=== PATIENT | female | born 1990 | race Caucasian/White ===

== ENCOUNTER 2016-08-13 12:29 | Inpatient (IN) | payer OTHER ==
[2016-08-13 13:54] VITALS: BMI 26.6
--- NOTE | 2016-08-13 15:00 | HP ---
COWS - Scale Resting Pulse: 2= MO 101-120 Sweatin=Flushed/Facial Moisture Restless Observation: 1= Difficult to Sit Still Pupil Size: 0= Normal to Room Light Bone or Joint Aches: 2= Severe Diffuse Aches Runny Nose/ Eye Tearin= Runny Nose/Eyes GI Upset > 30mins: 1= Stomach Cramp Tremor Observation: 2= Slight Tremor Visible Yawning Observation: 2= >3x During Session Anxiety or Irritability: 2=Irritable/Anxious Goose Flesh Skin: 3=Piloerection COWS Score: 19 Admission ROS [facility] - [facility] Allergies/Adverse Reactions: Allergies Allergy/AdvReac Type Severity Reaction Status Date / Time No Known Allergies Allergy Verified 08/13/16 14:27 Exam Limitations: No Limitations - Ebola screening Have you traveled outside of the country in the last 21 days: No Have you had contact with anyone from an Ebola affected area: No Have you been sick,other than usual withdrawal symptoms: No Do you have a fever: No - Review of Systems Constitutional: Chills, Diaphoresis, Loss of Appetite, Night Sweats, Unintentional Wgt. Loss EENT: reports: Blurred Vision, Tearing, Nose Congestion Respiratory: reports: No Symptoms reported Cardiac: reports: No Symptoms Reported GI: reports: Constipated, Diarrhea, Poor Appetite, Poor Fluid Intake, Indigestion : reports: No Symptoms Reported Musculoskeletal: reports: Back Pain, Joint Pain, Muscle Pain Integumentary: reports: Flushing, Sweating Neuro: reports: Headache, Seizure (last seizure about a week ago), Tingling, Tremors Endocrine: reports: Excessive Sweating, Flushing, Intolerance to Cold, Intolerance to Heat Hematology: reports: No Symptoms Reported Psychiatric: reports: Judgement Intact, Orientated x3, Agitated, Anxious Other Systems: Reviewed and Negative Patient History - Patient Medical History Hx Anemia: No Hx Asthma: No Hx Chronic Obstructive Pulmonary Disease (COPD): No Hx Cancer: No Hx Cardiac Disorders: No Hx Congestive Heart Failure: No Hx Hypertension: Yes Hx Hypercholesterolemia: No Hx Pacemaker: No HX Cerebrovascular Accident: No Hx Seizures: Yes (last episode was in 08/08/2016) Hx Dementia: No Hx Diabetes: No Hx Gastrointestinal Disorders: No Hx Liver Disease: No Hx Genitourinary Disorders: No Hx Sexually Transmitted Disorders: No Hx Renal Disease (ESRD): No Hx Thyroid Disease: No Hx Human Immunodeficiency Virus (HIV): No (LAST 02/11 NEGATIVE) Hx Hepatitis C: No (negative) Hx Depression: No Hx Suicide Attempt: No (denies) Hx Bipolar Disorder: No Hx Schizophrenia: No - Patient Surgical History Past Surgical History: Yes Hx Neurologic Surgery: No Hx Cataract Extraction: No Hx Cardiac Surgery: No Hx Lung Surgery: No Hx Breast Surgery: No Hx Breast Biopsy: No Hx Abdominal Surgery: Yes Hx Appendectomy: No Hx Cholecystectomy: No Hx Genitourinary Surgery: No Hx Section: Yes (X1 IN 2010) Hx Orthopedic Surgery: No Other Surgical History: IUD 2 years ago Anesthesia Reaction: No - PPD History Previous Implant?: Yes Documented Results: Negative w/proof Implanted On Prior [facility] Admission?: Yes Date: 05/31/16 Results: 0 mm PPD to be Administered?: No - Reproductive History Last Menstrual Period: 08/03/16 Patient : No - Smoking Cessation Smoking history: Current every day smoker Have you smoked in the past 12 months: Yes Aproximately how many cigarettes per day: 10 Hx Chewing Tobacco Use: No Initiated information on smoking cessation: Yes 'Breaking Loose' booklet given: 08/13/16 - Substance & Tx. History Hx Substance Use: Yes Substance Use Type: Cocaine, Heroin Hx Substance Use Treatment: Yes - Substances Abused Heroin Route: Injection Frequency: Daily Amount used: 9 bags Age of first use: 22 Date of Last Use: 08/13/16 Cocaine Route: Injection Frequency: 1-3 times last 30 days Amount used: $40 Age of first use: 16 Date of Last Use: 08/12/16 Family Disease History - Family Disease History Family Disease History: Other: Grandparent (GF-HTN), Father (HTN), Mother (HTN) Admission Physical Exam BHS - Vital Signs Vital Signs: Vital Signs - 24 hr 08/13/16 13:45 Temperature 97 F L Pulse Rate 118 H Respiratory 20 Rate Blood Pressure 116/80 - Physical General Appearance: Yes: Appropriately Dressed, Moderate Distress, Tremorous, Irritable, Sweating, Anxious HEENTM: Yes: Normal Voice, Nasal Congestion, Rhinorrhea Respiratory: Yes: Lungs Clear, Normal Breath Sounds, No Respiratory Distress Neck: Yes: No masses,lesions,Nodules Breast: Yes: Within Normal Limits Cardiology: Yes: Regular Rhythm, Regular Rate, S1, S2 Abdominal: Yes: Normal Bowel Sounds, Non Tender, Soft Genitourinary: Yes: Within Normal Limits Back: Yes: Normal Inspection Musculoskeletal: Yes: full range of Motion, Back pain Extremities: Yes: Normal Capillary Refill, Normal Inspection, Non-Tender, Tremors Neurological: Yes: Fully Oriented, Alert, Normal Response Integumentary: Yes: Normal Color, Diaphoresis, Track Booker Lymphatic: Yes: Within Normal Limits - Diagnostic (1) Chronic low back pain Current Visit: Yes Status: Chronic Qualifiers: Back pain laterality: unspecified (2) Nicotine dependence Current Visit: Yes Status: Chronic (3) Opioid dependence with withdrawal Current Visit: Yes Status: Chronic (4) Seizure Current Visit: Yes Status: Chronic Comment: h/o of seizure last a week ago Cleared for Admission [facility] - Detox or Rehab [facility] Level of Care: Medically Managed Detox Regimen/Protocol: Methadone [facility] Breath Alcohol Content Breath Alcohol Content: 0 Urine Pregancy Test - Result Urine Test Results: Negative- NO Line Present Urine Drug Screen - Results Drug Screen Negative: No Urine Drug Screen Results: THC-Marijuana, EMA-Cocaine, OPI-Opiates
[2016-08-13] MEDS ORDERED: MAGNESIUM CITRATE 300 ML BOTTLE PO PRN (15:09)
[2016-08-13] MEDS ORDERED: MAGNESIUM HYDROX 2400MG/30ML ORAL SUSPENSION 30 ML CUP PO PRN (15:09)
[2016-08-13] MEDS ORDERED: ACETAMINOPHEN 325 MG TABLET (FP) PO PRN (15:09)
[2016-08-13] MEDS ORDERED: MAG HYDROX/AL HYDROX/SIMETH 30 ML UNIT-DOSE CUP PO PRN (15:09)
[2016-08-13] MEDS ORDERED: LOPERAMIDE HCL 2 MG CAPSULE PO PRN (15:09)
[2016-08-13] MEDS ORDERED: guaiFENesin/D-METHORPHAN HB 10 ML UNIT-DOSE CUPS PO PRN (15:09)
[2016-08-13] MEDS ORDERED: NICOTINE POLACRILEX 4 MG GUM BUC PRN (15:09)
[2016-08-13] MEDS ORDERED: diphenhydrAMINE HCL 50 MG CAPSULE PO PRN (15:09)
[2016-08-13] MEDS ORDERED: P-EPHED 60MG/TRIPROLIDI 2.5MG TABLET PO PRN (15:09)
[2016-08-13] MEDS ORDERED: MENTHOL/PHENOL 1 EACH UD MM PRN (15:09)
[2016-08-13] MEDS ORDERED: cloNIDine HCL 0.1 MG TABLET PO ONE (15:31)
[2016-08-13] MEDS ORDERED: METHADONE HCL 10 MG TABLET (FOR DETOX USE ONLY) PO ONE ×2 (15:35→23:00)
[2016-08-13] MEDS: diazePAM 5 MG TABLET PO PRN ×2 (15:54→22:20)
[2016-08-13 19:43] LABS: URINE APPEARANCE TURBID; URINE BILIRUBIN NEGATIVE (NEGATIVE); URINE BLOOD NEGATIVE (NEGATIVE); URINE COLOR AMBER; URINE GLUCOSE (UA) NEGATIVE (NEGATIVE); URINE KETONE NEGATIVE (NEGATIVE); URINE LEUK ESTERASE NEGATIVE (NEGATIVE); URINE NITRITE NEGATIVE (NEGATIVE); URINE PROTEIN NEGATIVE (NEGATIVE); URINE UROBILINOGEN 2.0 E.U/dl E.U./dl (0.2-1.0)
[2016-08-13] MEDS: THIAMINE HCL 100 MG TABLET (FP) PO SCH (22:20)
[2016-08-13] MEDS: cloNIDine HCL 0.1 MG TABLET PO SCH (22:21)
[2016-08-13] MEDS: hydrOXYzine PAMOATE 50 MG CAPSULE (FP) PO PRN (23:40)
[2016-08-14] MEDS: diazePAM 5 MG TABLET PO PRN ×4 (05:46→22:23)
[2016-08-14] MEDS: IBUPROFEN 400 MG TABLET (FP) PO PRN ×2 (07:21→22:49)
--- NOTE | 2016-08-14 09:24 | CONSULT ---
[facility] Psychiatric Consult - Data Date of interview: 08/14/16 Admission source: [facility] Identifying data: This is 26 years old female with no psychiatric hospitalization history intoxicated with Heroin, Cocaine, Cannabis and Nicotine Substance Abuse History: Drug Screen Negative: No. Urine Drug Screen Results: THC-Marijuana, EMA-Cocaine, OPI-Opiates. - Smoking Cessation. Smoking history : Current every day smoker. Have you smoked in the past 12 months: Yes. Aproximately how many cigarettes per day: 10. Hx Chewing Tobacco Use: No. Initiated information on smoking cessation: Yes. 'Breaking Loose' booklet given : 08/13/16. - Substance & Tx. History. Hx Substance Use: Yes. Substance Use Type: Cocaine, Heroin. Hx Substance Use Treatment: Yes. - Substances Abused. Heroin. Route: Injection. Frequency: Daily. Amount used: 9 bags. Age of first use: 22. Date of Last Use: 08/13/16. Cocaine. Route: Injection. Frequency: 1-3 times last 30 days. Amount used: $40. Age of first use: 16. Date of Last Use: 08/12/16 Medical History: LBP, Seizure history, UTI history, Lumbar Herniation history Psychiatric History: ADHD, reports taking Vistaril 50mg po p[rn q6 with good response Physical/Sexual Abuse/Trauma History: Denies Additional Comment: Drug Screen Negative: No. Urine Drug Screen Results: THC- Marijuana, EMA-Cocaine, OPI-Opiates. Vistaril 50mg po p[rn q6 Mental Status Exam - Mental Status Exam Alert and Oriented to: Person Cognitive Function: Fair Patient Appearance: Unkempt Mood: Sad Affect: Mood Congruent Patient Behavior: Cooperative Speech Pattern: Appropriate Voice Loudness: Normal Thought Process: Goal Oriented Thought Disorder: Being Controlled Hallucinations: Denies Suicidal Ideation: Denies Homicidal Ideation: Denies Insight/Judgement: Fair Sleep: Difficulty falling asleep Appetite: Weight loss Muscle strength/Tone: Normal Gait/Station: Normal Additional Comments: Vistaril 50mg po p[rn q6 Psychiatric Findings - Problem List ([place] 1, 2,3) (1) Nicotine dependence Current Visit: Yes Status: Chronic (2) Opioid dependence with withdrawal Current Visit: Yes Status: Chronic (3) ADHD (attention deficit hyperactivity disorder) Current Visit: No Status: Chronic (4) Anxiety disorder Current Visit: No Status: Chronic (5) Drug-induced mood disorder Current Visit: No Status: Suspected - Initial Treatment Plan Initial Treatment Plan: Vistaril 50mg po p[rn q6
--- NOTE | 2016-08-14 09:25 | CONSULT ---
[facility] Psychiatric Consult - Data Substance Abuse History: Drug Screen Negative: No. Urine Drug Screen Results: THC-Marijuana, EMA-Cocaine, OPI-Opiates Additional Comment: Drug Screen Negative: No. Urine Drug Screen Results: THC- Marijuana, EMA-Cocaine, OPI-Opiates
[2016-08-14] MEDS ORDERED: PRENATAL VITAMINS W/ FOLIC ACID TABLET (FP) PO SCH (10:00)
[2016-08-14] MEDS ORDERED: METHADONE HCL 10 MG TABLET (FOR DETOX USE ONLY) PO ONE (10:00)
[2016-08-14] MEDS ORDERED: NICOTINE 21 MG/24 HOURS TOPICAL PATCH TD SCH (10:00)
[2016-08-14 10:06] LABS: MCH 29.9 pg (25.7-33.7); MCHC 32.9 g/dl (32.0-36.0); MEAN PLT VOLUME 10.7 fl (7.5-11.1); PLATELET COUNT 232 K/MM3 (134-434); RDW 16.6 % (11.6-15.6); WHITE BLOOD COUNT 8.3 K/mm3 (4.0-10.0)
[2016-08-14] MEDS: cloNIDine HCL 0.1 MG TABLET PO SCH ×2 (10:25→22:23)
[2016-08-14 10:50] LABS: ALBUMIN 4.4 g/dl (3.4-5.0); ALK PHOS 106 U/L (45-117); ANION GAP 10 (8-16); BILIRUBIN,TOTAL 0.8 mg/dL (0.2-1.0); CALCIUM 9.5 mg/dL (8.5-10.1); CO2 28 mmol/L (21-32); GLUCOSE,RANDOM 144 mg/dL (74-106); SGOT/AST 138 U/L (15-37); SGPT/ALT 350 U/L (12-78); TOT PROT 7.8 g/dl (6.4-8.2)
--- NOTE | 2016-08-14 11:57 | PN ---
BHS COWS - Scale Resting Pulse: 1= NE 81-100 Sweatin=Flushed/Facial Moisture Restless Observation: 1= Difficult to Sit Still Pupil Size: 0= Normal to Room Light Bone or Joint Aches: 2= Severe Diffuse Aches Runny Nose/ Eye Tearin= Runny Nose/Eyes GI Upset > 30mins: 1= Stomach Cramp Tremor Observation of Outstretched Hands: 2= Slight Tremor Visible Yawning Observation: 2= >3x During Session Anxiety or Irritability: 2=Irritable/Anxious Goose Flesh Skin: 0=Smooth Skin COWS Score: 15 BHS Progress Note (SOAP) Subjective: irritable sweats shakes interrupted sleep agitation Objective: 08/14/16 11:54 Vital Signs Temperature 97.7 F 08/14/16 09:18 Pulse Rate 87 08/14/16 09:18 Respiratory Rate 18 08/14/16 09:18 Blood Pressure 104/64 08/14/16 09:18 O2 Sat by Pulse Oximetry (%) Laboratory Tests 08/13/16 08/14/16 08/14/16 14:00 06:00 06:00 WBC 8.3 RBC 4.94 Hgb 14.8 D Hct 44.9 MCV 91.0 MCHC 32.9 RDW 16.6 H Plt Count 232 MPV 10.7 Sodium 141 Potassium 4.3 Chloride 103 Carbon Dioxide 28 Anion Gap 10 BUN 17 D Creatinine 1.0 D Creat Clearance w eGFR > 60 Random Glucose 144 H D Calcium 9.5 Total Bilirubin 0.8 D AST 138 H D ALT 350 H D Alkaline Phosphatase 106 Total Protein 7.8 Albumin 4.4 Urine Color Laura Urine Appearance Turbid Urine pH 5.0 Ur Specific [place] 1.031 Urine Protein Negative Urine Glucose (UA) Negative Urine Ketones Negative Urine Blood Negative Urine Nitrite Negative Urine Bilirubin Negative Urine Urobilinogen 2.0 e.u/dl H Ur Leukocyte Esterase Negative elevated ast/alt;d/c tylenol awake/alert ambulating no acute distress elevated glucose repeat cmp Assessment: 08/14/16 11:56 withdrawal sx Plan: continue detox increase fluids f/u repeated labs
[2016-08-14] MEDS: hydrOXYzine PAMOATE 50 MG CAPSULE (FP) PO PRN (14:13)
--- NOTE | 2016-08-14 16:18 | EKG ---
Test Reason : Blood Pressure : / mmHG Vent. Rate : 077 BPM Atrial Rate : 077 BPM P-R Int : 158 ms QRS Dur : 078 ms QT Int : 382 ms P-R-T Axes : 048 025 040 degrees QTc Int : 432 ms NORMAL SINUS RHYTHM WITH SINUS ARRHYTHMIA Confirmed by LUCILLE SEGAL MD ([id number]) on 08/14/2016 4:17:36 PM Referred By: Confirmed By:LUCILLE SEGAL MD
[2016-08-14] MEDS: THIAMINE HCL 100 MG TABLET (FP) PO SCH (22:23)
[2016-08-15] MEDS: diazePAM 5 MG TABLET PO PRN (05:51)
[2016-08-15 06:48] VITALS: BP 122/66; PULSE 86; TEMP 97.9
--- NOTE | 2016-08-15 08:55 | PN ---
BHS CIWA - CIWA Score Nausea/Vomitin Muscle Tremors: 3 Anxiety: 3 Agitation: 3 Paroxysmal Sweats: 1-Minimal Palms Moist Orientation: 0-Oriented Tacttile Disturbances: 1-Very Mild Itch/Numbness Auditory Disturbances: 1-Very Mild Visual Disturbances: 1-Very Mild Sensitivity Headache: 2-Mild CIWA-Ar Total Score: 18 BHS Progress Note (SOAP) Subjective: alert,irritable,anxious,interrupted sleep,tremor Objective: 08/15/16 08:51 Vital Signs Temperature 97.9 F 08/15/16 06:00 Pulse Rate 86 08/15/16 06:00 Respiratory Rate 16 08/15/16 06:00 Blood Pressure 122/66 08/15/16 06:00 O2 Sat by Pulse Oximetry (%) 08/15/16 08:54 repeat alt,ast pending Assessment: withdrawal symptom Plan: continue detox
--- NOTE | 2016-08-15 09:10 | DS ---
[facility] Detox Discharge Summary Admission Date: 08/13/16 Discharge Date: 08/15/16 - History Present History: Opioid Dependence Additional Comments: patient did not want to complete treatment,signed release ama,patient is aware of abnormal lab with elevation alt,ast,she will see her own pmd for follow up Pertinent Past History: seizure chronic low back pain - Physical Exam Results Vital Signs: Vital Signs Temperature 97.9 F 08/15/16 06:00 Pulse Rate 86 08/15/16 06:00 Respiratory Rate 16 08/15/16 06:00 Blood Pressure 122/66 08/15/16 06:00 O2 Sat by Pulse Oximetry (%) Pertinent Admission Physical Exam Findings: withdrawal symptom - Medication Discharge Medications: Ambulatory Orders Clonidine HCl [Clonidine HCl ER] 0.1 mg PO BID 03/07/16 - AMA Did Patient Leave Against Medical Advice: Yes
[2016-08-15] MEDS ORDERED: METHADONE HCL 5 MG TABLET (FOR DETOX USE ONLY) PO ONE (10:00)
[2016-08-15 10:07] LABS: ALBUMIN 3.2 g/dl (3.4-5.0); ANION GAP 8 (8-16); CALCIUM 8.2 mg/dL (8.5-10.1); CO2 30 mmol/L (21-32); CREATININE 0.6 mg/dL (0.55-1.02); GLUCOSE,RANDOM 63 mg/dL (74-106); SGOT/AST 74 U/L (15-37); SGPT/ALT 231 U/L (12-78)
[2016-08-15 10:09] LABS: ALK PHOS 102 U/L (45-117); BILIRUBIN,TOTAL 0.2 mg/dL (0.2-1.0); TOT PROT 5.7 g/dl (6.4-8.2)
[2016-08-16] MEDS ORDERED: METHADONE HCL 5 MG TABLET (FOR DETOX USE ONLY) PO ONE (10:00)
[2016-08-17] MEDS ORDERED: METHADONE HCL 10 MG TABLET (FOR DETOX USE ONLY) PO ONE (10:00)
[2016-08-18] MEDS ORDERED: METHADONE HCL 5 MG TABLET (FOR DETOX USE ONLY) PO ONE (06:00)
== END 2016-08-15 08:58 | disposition left against medical advice (07) | DRG 770 ==
LOC: YASAS 12:29 → Y6N 14:57
PROVIDERS: ADMIT Internal Medicine Addiction Medicine; ATTEND Internal Medicine Addiction Medicine
PROC: HZ2ZZZZ Detoxification Services for Substance Abuse Treatment (ICD-10-PCS; principal; 2016-08-15)
DX: F11.23 Opioid dependence with withdrawal (principal); F17.210 Nicotine dependence, cigarettes, uncomplicated; F19.24 Other psychoactive substance dependence with psychoactive substance-induced mood disorder; F41.9 Anxiety disorder, unspecified; F90.9 Attention-deficit hyperactivity disorder, unspecified type; G40.909 Epilepsy, unspecified, not intractable, without status epilepticus
CPT/HCPCS: 36415; 80053; 81003; 85027; 86593; 93005; 93010

== ENCOUNTER 2016-10-15 18:06 | Inpatient (IN) | payer OTHER ==
[2016-10-15 19:25] VITALS: BMI 24.5
--- NOTE | 2016-10-15 19:53 | HP ---
COWS - Scale Resting Pulse: 0= OK 80 or Below Sweatin= Chills/Flushing Restless Observation: 1= Difficult to Sit Still Pupil Size: 1= Pupils >than Normal Bone or Joint Aches: 2= Severe Diffuse Aches Runny Nose/ Eye Tearin= Runny Nose/Eyes GI Upset > 30mins: 2= Nausea/Diarrhea Tremor Observation: 2= Slight Tremor Visible Yawning Observation: 1= 1-2x During Session Anxiety or Irritability: 2=Irritable/Anxious Goose Flesh Skin: 3=Piloerection COWS Score: 17 Admission ROS S - HPI Chief Complaint: WITHDRAWAL SYMPTOMS Allergies/Adverse Reactions: Allergies Allergy/AdvReac Type Severity Reaction Status Date / Time No Known Allergies Allergy Verified 08/13/16 14:27 History of Present Illness: 26 Y.O. WITH A FOUR HISTORY OF OPIATE DEPENDENCE IS SEEKING DETOX. SHE WAS HERE PREVIOUSLY IN 07/2016 BUT LEFT AMA. SHE DENIES ANY SIGNIFICANT PERIOD OF SOBRIETY. 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) Neuro: reports: No Symptoms reported Endocrine: reports: No Symptoms Reported Hematology: reports: No Symptoms Reported Psychiatric: reports: Orientated x3, Depressed, other (ADHD) Other Systems: Reviewed and Negative Patient History - Patient Medical History Hx Anemia: No Hx Asthma: No Hx Chronic Obstructive Pulmonary Disease (COPD): No Hx Cancer: No Hx Cardiac Disorders: No Hx Congestive Heart Failure: No Hx Hypertension: No Hx Hypercholesterolemia: No Hx Pacemaker: No HX Cerebrovascular Accident: No Hx Seizures: Yes (2016-ON [facility] ) Hx Dementia: No Hx Diabetes: No Hx Gastrointestinal Disorders: No Hx Liver Disease: No Hx Genitourinary Disorders: No Hx Sexually Transmitted Disorders: No Hx Renal Disease (ESRD): No Hx Thyroid Disease: No Hx Human Immunodeficiency Virus (HIV): No (LAST 02/11 NEGATIVE) Hx Hepatitis C: No (negative) Hx Depression: Yes Hx Suicide Attempt: No Hx Bipolar Disorder: No Hx Schizophrenia: No - Patient Surgical History Past Surgical History: Yes Hx Neurologic Surgery: No Hx Cataract Extraction: No Hx Cardiac Surgery: No Hx Lung Surgery: No Hx Breast Surgery: No Hx Breast Biopsy: No Hx Abdominal Surgery: Yes Hx Appendectomy: No Hx Cholecystectomy: No Hx Genitourinary Surgery: No Hx Section: Yes (X1 IN 2010) Hx Orthopedic Surgery: No Other Surgical History: IUD 2 years ago Anesthesia Reaction: No - PPD History Previous Implant?: Yes Documented Results: Negative w/proof Implanted On Prior [facility] Admission?: Yes Date: 05/31/16 Results: 0mm PPD to be Administered?: No - Reproductive History Patient is a Female of Child Bearing Age (11 -55 yrs old): Yes Last Menstrual Period: 09/06/16 Patient : No - Smoking Cessation Smoking history: Current every day smoker Have you smoked in the past 12 months: Yes Aproximately how many cigarettes per day: 10 Hx Chewing Tobacco Use: No Initiated information on smoking cessation: Yes 'Breaking Loose' booklet given: 10/15/16 - Substance & Tx. History Hx Alcohol Use: No Hx Substance Use: Yes Substance Use Type: Heroin Hx Substance Use Treatment: Yes (REHAB AND DETOX ) - Substances Abused Heroin Route: Injection Frequency: Daily Amount used: 5-10 bags Age of first use: 22 Date of Last Use: 10/15/16 Family Disease History - Family Disease History Family Disease History: Other: Grandparent (GF-HTN), Father (HTN), Mother (HTN) Admission Physical Exam S - Vital Signs Vital Signs: Vital Signs - 24 hr 10/15/16 19:22 Temperature 97.3 F L Pulse Rate 77 Respiratory 18 Rate Blood Pressure 111/73 - Physical General Appearance: Yes: Tremorous, Anxious HEENTM: Yes: Rhinorrhea Respiratory: Yes: Chest Non-Tender, Lungs Clear, Normal Breath Sounds, No Respiratory Distress, No Accessory Muscle Use Neck: Yes: No masses,lesions,Nodules, Trachea in good position Breast: Yes: Breast Exam Deferred Cardiology: Yes: Regular Rhythm, Regular Rate Abdominal: Yes: Non Tender, Flat, Soft Genitourinary: Yes: Other (DENIES ANY COMPLAINTS) Back: Yes: Normal Inspection Musculoskeletal: Yes: Back pain, Muscle Pain Extremities: Yes: Normal Capillary Refill, Normal Inspection, Normal Range of Motion, Tremors Neurological: Yes: Fully Oriented, Alert, Normal Mood/Affect, Normal Response Integumentary: Yes: Warm, Track Shafer Lymphatic: Yes: Within Normal Limits - Diagnostic (1) Nicotine dependence Current Visit: Yes Status: Chronic (2) Opioid dependence with withdrawal Current Visit: Yes Status: Chronic (3) Seizure Current Visit: Yes Status: Chronic Comment: h/o of seizure last a week ago Cleared for Admission [facility] - Detox or Rehab [facility] Level of Care: Medically Managed Detox Regimen/Protocol: Methadone [facility] Breath Alcohol Content Breath Alcohol Content: 0 Urine Pregancy Test - Result Urine Test Results: Negative- NO Line Present Urine Drug Screen - Results Drug Screen Negative: No Urine Drug Screen Results: EMA-Cocaine, OPI-Opiates, BZO-Benzodiazepines, MTD- Methadone
[2016-10-15] MEDS ORDERED: IBUPROFEN 400 MG TABLET (FP) PO PRN (20:06)
[2016-10-15] MEDS ORDERED: MAGNESIUM CITRATE 300 ML BOTTLE PO PRN (20:06)
[2016-10-15] MEDS ORDERED: METHADONE HCL 10 MG TABLET (FOR DETOX USE ONLY) PO ONE ×2 (20:06→23:00)
[2016-10-15] MEDS ORDERED: MAGNESIUM HYDROX 2400MG/30ML ORAL SUSPENSION 30 ML CUP PO PRN (20:06)
[2016-10-15] MEDS ORDERED: NICOTINE POLACRILEX 2 MG GUM BC PRN (20:06)
[2016-10-15] MEDS ORDERED: guaiFENesin/D-METHORPHAN HB 10 ML UNIT-DOSE CUPS PO PRN (20:06)
[2016-10-15] MEDS ORDERED: MAG HYDROX/AL HYDROX/SIMETH 30 ML UNIT-DOSE CUP PO PRN (20:06)
[2016-10-15] MEDS ORDERED: LOPERAMIDE HCL 2 MG CAPSULE PO PRN (20:06)
[2016-10-15] MEDS ORDERED: ACETAMINOPHEN 325 MG TABLET (FP) PO PRN (20:06)
[2016-10-15] MEDS ORDERED: MENTHOL/PHENOL 1 EACH UD MM PRN (20:06)
[2016-10-15] MEDS ORDERED: P-EPHED 60MG/TRIPROLIDI 2.5MG TABLET PO PRN (20:06)
[2016-10-15] MEDS: BACITRACIN 0.9 GM PACKET TP SCH (22:00)
[2016-10-15] MEDS: diazePAM 5 MG TABLET PO PRN (22:00)
[2016-10-15] MEDS: THIAMINE HCL 100 MG TABLET (FP) PO SCH (22:00)
[2016-10-15] MEDS: levETIRAcetam 500 MG TABLET (FP) PO SCH (22:01)
[2016-10-16] MEDS: diazePAM 5 MG TABLET PO PRN ×4 (06:17→22:23)
--- NOTE | 2016-10-16 08:45 | CONSULT ---
[facility] Psychiatric Consult - Data Date of interview: 10/16/16 Admission source: [facility] Identifying data: This is 26 years old female with no psychiatric hospitalization history intoxicated with: Opioids, Nicotine, history of Alcohol abuse/dependency as well Substance Abuse History: - Smoking Cessation. Smoking history: Current every day smoker. Have you smoked in the past 12 months: Yes. Aproximately how many cigarettes per day: 10. Hx Chewing Tobacco Use: No. Initiated information on smoking cessation: Yes. 'Breaking Loose' booklet given: 10/15/16. - Substance & Tx. History. Hx Alcohol Use: No. Hx Substance Use: Yes. Substance Use Type : Heroin. Hx Substance Use Treatment: Yes (REHAB AND DETOX ). - Substances Abused. Heroin. Route: Injection. Frequency: Daily. Amount used: 5-10 bags. Age of first use: 22. Date of Last Use: 10/15/16 Medical History: Seizure history, LBP, UTI History Psychiatric History: Patient reports history of ADHD, Anxiety, reports taking prior to admission: Adderal and Klonopin, reports need in Klonopin due to seizure disorder Physical/Sexual Abuse/Trauma History: Denies Additional Comment: Observation. Detox Unit Care Protocol Mental Status Exam - Mental Status Exam Alert and Oriented to: Person Cognitive Function: Fair Patient Appearance: Unkempt Mood: Anxious Affect: Mood Congruent Patient Behavior: Cooperative Speech Pattern: Appropriate Voice Loudness: Mildly Loud Thought Process: Goal Oriented Thought Disorder: Being Controlled Hallucinations: Denies Suicidal Ideation: Denies Homicidal Ideation: Denies Insight/Judgement: Fair Sleep: Difficulty falling asleep Appetite: Fair Muscle strength/Tone: Normal Gait/Station: Normal Additional Comments: - Smoking Cessation. Smoking history: Current every day smoker. Have you smoked in the past 12 months: Yes. Aproximately how many cigarettes per day: 10. Hx Chewing Tobacco Use: No. Initiated information on smoking cessation: Yes. 'Breaking Loose' booklet given: 10/15/16. - Substance & Tx. History. Hx Alcohol Use: No. Hx Substance Use: Yes. Substance Use Type : Heroin. Hx Substance Use Treatment: Yes (REHAB AND DETOX ). - Substances Abused. Heroin. Route: Injection. Frequency: Daily. Amount used: 5-10 bags. Age of first use: 22. Date of Last Use: 10/15/16 Psychiatric Findings - Problem List ([place] 1, 2,3) (1) Nicotine dependence Current Visit: Yes Status: Chronic (2) Opioid dependence with withdrawal Current Visit: Yes Status: Chronic (3) ADHD (attention deficit hyperactivity disorder) Current Visit: No Status: Chronic (4) Anxiety disorder Current Visit: No Status: Chronic (5) Drug-induced mood disorder Current Visit: No Status: Suspected - Initial Treatment Plan Initial Treatment Plan: Observation. Detox Unit Care Protocol
--- NOTE | 2016-10-16 08:46 | CONSULT ---
[id number] [facility] Identifying data: This is 26 years old female with no psychiatric hospitalization history intoxicated with Opioids, Amphjethamins and Nicotine Substance Abuse History: - Smoking Cessation. Smoking history: Current every day smoker. Have you smoked in the past 12 months: Yes. Aproximately how many cigarettes per day: 10. Hx Chewing Tobacco Use: No. Initiated information on smoking cessation: Yes. 'Breaking Loose' booklet given: 10/15/16. - Substance & Tx. History. Hx Alcohol Use: No. Hx Substance Use: Yes. Substance Use Type : Heroin. Hx Substance Use Treatment: Yes (REHAB AND DETOX ). - Substances Abused. Heroin. Route: Injection. Frequency: Daily. Amount used: 5-10 bags. Age of first use: 22. Date of Last Use: 10/15/16 Medical History: Denies Psychiatric History: Patient reports ADHD, Anxiety history, reports using Adderal for anxiety prior to admission Physical/Sexual Abuse/Trauma History: Denies Additional Comment: Observation. Detox Unit Care Protocol Mental Status Exam - Mental Status Exam Alert and Oriented to: Person Cognitive Function: Fair Patient Appearance: Unkempt Mood: Sad Affect: Flat Patient Behavior: Sedated Speech Pattern: Delayed Voice Loudness: Mildly Soft/Quiet Thought Process: Circumstantial Thought Disorder: Being Controlled Hallucinations: Denies Suicidal Ideation: Denies Homicidal Ideation: Denies Insight/Judgement: Fair Sleep: Difficulty falling asleep Appetite: Fair Muscle strength/Tone: Normal Gait/Station: Normal Additional Comments: Observation. Detox Unit Care Protocol Psychiatric Findings - Problem List ([place] 1, 2,3) (1) Nicotine dependence Current Visit: Yes Status: Chronic (2) Opioid dependence with withdrawal Current Visit: Yes Status: Chronic (3) ADHD (attention deficit hyperactivity disorder) Current Visit: No Status: Chronic (4) Anxiety disorder Current Visit: No Status: Chronic (5) Lumbar herniated disc Current Visit: No Status: Chronic (6) Drug-induced mood disorder Current Visit: No Status: Suspected - Initial Treatment Plan Initial Treatment Plan: Observation. Detox Unit Care Protocol
[2016-10-16] MEDS ORDERED: METHADONE HCL 10 MG TABLET (FOR DETOX USE ONLY) PO ONE (10:00)
[2016-10-16] MEDS: NICOTINE 14 MG/24 HOURS TOPICAL PATCH TD SCH (10:43)
[2016-10-16] MEDS: levETIRAcetam 500 MG TABLET (FP) PO SCH ×2 (10:44→22:23)
[2016-10-16] MEDS: PRENATAL VITAMINS W/ FOLIC ACID TABLET (FP) PO SCH (10:44)
[2016-10-16] MEDS: BACITRACIN 0.9 GM PACKET TP SCH ×2 (10:44→22:24)
[2016-10-16 10:46] LABS: MCH 30.3 pg (25.7-33.7); MCHC 33.6 g/dl (32.0-36.0); MEAN PLT VOLUME 10.8 fl (7.5-11.1); PLATELET COUNT 185 K/MM3 (134-434); RDW 13.7 % (11.6-15.6); WHITE BLOOD COUNT 5.6 K/mm3 (4.0-10.0)
[2016-10-16 10:52] LABS: ALBUMIN 3.4 g/dl (3.4-5.0); ANION GAP 8 (8-16); CALCIUM 8.5 mg/dL (8.5-10.1); CO2 27 mmol/L (21-32); GLUCOSE,RANDOM 101 mg/dL (74-106)
[2016-10-16 10:55] LABS: ALK PHOS 78 U/L (45-117); BILIRUBIN,TOTAL 0.4 mg/dL (0.2-1.0); CREATININE 0.8 mg/dL (0.55-1.02); SGOT/AST 74 U/L (15-37); SGPT/ALT 159 U/L (12-78); TOT PROT 6.8 g/dl (6.4-8.2)
[2016-10-16 11:45] LABS: HIV 1 & 2 AB NEGATIVE; HIV 1 AGp24 NEGATIVE
--- NOTE | 2016-10-16 12:32 | EKG ---
Test Reason : Blood Pressure : / mmHG Vent. Rate : 063 BPM Atrial Rate : 063 BPM P-R Int : 158 ms QRS Dur : 078 ms QT Int : 424 ms P-R-T Axes : 062 052 057 degrees QTc Int : 433 ms NORMAL SINUS RHYTHM WITH SINUS ARRHYTHMIA NORMAL ECG WHEN COMPARED WITH ECG OF 13-AUG-2016 15:50, NO SIGNIFICANT CHANGE WAS FOUND Confirmed by LUCILLE SEGAL MD ([id number]) on 10/16/2016 12:31:48 PM Referred By: Confirmed By:LUCILLE SEGAL MD
[2016-10-16] MEDS: hydrOXYzine PAMOATE 50 MG CAPSULE (FP) PO PRN (18:45)
[2016-10-16] MEDS ORDERED: HYDROCORTISONE 1% TOPICAL CREAM 30 GM TUBE TP ONE (19:00)
[2016-10-16] MEDS: THIAMINE HCL 100 MG TABLET (FP) PO SCH (22:24)
[2016-10-16] MEDS: diphenhydrAMINE HCL 50 MG CAPSULE PO PRN (22:25)
[2016-10-17] MEDS ORDERED: ONDANSETRON *ODT* 4 MG TABLET SL PRN (09:29)
[2016-10-17] MEDS ORDERED: METHADONE HCL 5 MG TABLET (FOR DETOX USE ONLY) PO ONE (10:00)
[2016-10-17] MEDS: levETIRAcetam 500 MG TABLET (FP) PO SCH ×2 (10:59→22:20)
[2016-10-17] MEDS: PRENATAL VITAMINS W/ FOLIC ACID TABLET (FP) PO SCH (10:59)
[2016-10-17] MEDS: BACITRACIN 0.9 GM PACKET TP SCH ×2 (10:59→22:20)
[2016-10-17] MEDS: diazePAM 5 MG TABLET PO PRN ×2 (11:01→22:22)
[2016-10-17] MEDS: NICOTINE 14 MG/24 HOURS TOPICAL PATCH TD SCH (12:14)
[2016-10-17] MEDS: NICOTINE 21 MG/24 HOURS TOPICAL PATCH TD SCH (12:14)
--- NOTE | 2016-10-17 13:07 | PN ---
BHS COWS - Scale Resting Pulse: 0= [place] 80 or Below Sweatin= Chills/Flushing Restless Observation: 0= Sits Still Pupil Size: 0= Normal to Room Light Bone or Joint Aches: 2= Severe Diffuse Aches Runny Nose/ Eye Tearin= Runny Nose/Eyes GI Upset > 30mins: 2= Nausea/Diarrhea Tremor Observation of Outstretched Hands: 2= Slight Tremor Visible Yawning Observation: 1= 1-2x During Session Anxiety or Irritability: 2=Irritable/Anxious Goose Flesh Skin: 3=Piloerection COWS Score: 15 BHS Progress Note (SOAP) Subjective: Nausea, Tremors, Interrupted sleep, Sweating, H/A, Body Aches. Objective: PT. A & O X 3, OBSERVED AMBULATING ON UNIT. PT. REPORTS HISTORY OF LOW BP. PT. DENIES DIZZINESS. 10/17/16 13:05 Vital Signs Temperature 97.9 F 10/17/16 11:59 Pulse Rate 70 10/17/16 11:59 Respiratory Rate 18 10/17/16 11:59 Blood Pressure 111/71 10/17/16 11:59 O2 Sat by Pulse Oximetry (%) Laboratory Last Values WBC 5.6 K/mm3 (4.0-10.0) D 10/16/16 07:00 RBC 4.39 M/mm3 (3.60-5.2) 10/16/16 07:00 Hgb 13.3 GM/dL (10.7-15.3) D 10/16/16 07:00 Hct 39.5 % (32.4-45.2) 10/16/16 07:00 MCV 90.0 fl (80-96) 10/16/16 07:00 MCHC 33.6 g/dl (32.0-36.0) 10/16/16 07:00 RDW 13.7 % (11.6-15.6) D 10/16/16 07:00 Plt Count 185 K/MM3 (134-434) D 10/16/16 07:00 MPV 10.8 fl (7.5-11.1) 10/16/16 07:00 Sodium 145 mmol/L (136-145) 10/16/16 07:00 Potassium 3.9 mmol/L (3.5-5.1) 10/16/16 07:00 Chloride 110 mmol/L (98-107) H 10/16/16 07:00 Carbon Dioxide 27 mmol/L (21-32) 10/16/16 07:00 Anion Gap 8 (8-16) 10/16/16 07:00 BUN 17 mg/dL (7-18) 10/16/16 07:00 Creatinine 0.8 mg/dL (0.55-1.02) D 10/16/16 07:00 Creat Clearance w eGFR > 60 (>60) 10/16/16 07:00 Random Glucose 101 mg/dL (74-106) D 10/16/16 07:00 Calcium 8.5 mg/dL (8.5-10.1) 10/16/16 07:00 Total Bilirubin 0.4 mg/dL (0.2-1.0) D 10/16/16 07:00 AST 74 U/L (15-37) H 10/16/16 07:00 ALT 159 U/L (12-78) H D 10/16/16 07:00 Alkaline Phosphatase 78 U/L (45-117) D 10/16/16 07:00 Total Protein 6.8 g/dl (6.4-8.2) 10/16/16 07:00 Albumin 3.4 g/dl (3.4-5.0) 10/16/16 07:00 RPR Titer Nonreactive (NONREACTIVE) 10/16/16 07:00 HIV 1&2 Antibody Screen Negative 10/16/16 08:00 HIV P24 Antigen Negative 10/16/16 08:00 LABS NOTED. Assessment: 10/17/16 13:06 WITHDRAWAL SYMPTOMS. Plan: CONTINUE DETOX. INCREASE PO FLUIDS. ADVISED PATIENT TO FOLLOW-UP WITH ENERGY SYSTEMS ENGINEER / REHAB MEDICAL PROVIDER AFTER DISCHARGE FROM DETOX FOR GENERAL MEDICAL ASSESSMENT AND FOR ABNORMAL ADMISSION LAB VALUES.
[2016-10-17 13:15] LABS: URINE APPEARANCE CLOUDY; URINE BILIRUBIN NEGATIVE (NEGATIVE); URINE BLOOD NEGATIVE (NEGATIVE); URINE COLOR DKYELLOW; URINE GLUCOSE (UA) NEGATIVE (NEGATIVE); URINE KETONE NEGATIVE (NEGATIVE); URINE NITRITE POSITIVE (NEGATIVE); URINE PROTEIN NEGATIVE (NEGATIVE); URINE UROBILINOGEN NEGATIVE E.U./dl (0.2-1.0)
[2016-10-17 13:16] LABS: URINE LEUK ESTERASE 3+ (NEGATIVE)
[2016-10-17 13:18] LABS: URINE BACTERIA RARE /hpf (NONE SEEN); URINE MUCUS MANY; URINE RBC 11 /hpf (0-3); URINE WBC 87 /hpf (3-5); YEAST RARE
[2016-10-17] MEDS: diphenhydrAMINE HCL 50 MG CAPSULE PO PRN (22:20)
[2016-10-17] MEDS: THIAMINE HCL 100 MG TABLET (FP) PO SCH (22:23)
[2016-10-18] MEDS ORDERED: METHADONE HCL 5 MG TABLET (FOR DETOX USE ONLY) PO ONE (10:00)
[2016-10-18] MEDS: BACITRACIN 0.9 GM PACKET TP SCH ×2 (10:26→22:30)
[2016-10-18] MEDS: PRENATAL VITAMINS W/ FOLIC ACID TABLET (FP) PO SCH (10:27)
[2016-10-18] MEDS: diazePAM 5 MG TABLET PO PRN (10:27)
[2016-10-18] MEDS: levETIRAcetam 500 MG TABLET (FP) PO SCH ×2 (10:28→22:30)
[2016-10-18] MEDS: NICOTINE 21 MG/24 HOURS TOPICAL PATCH TD SCH ×2 (10:29→11:10)
[2016-10-18] MEDS ORDERED: diphenhydrAMINE HCL 25 MG CAPSULE (FP) PO ONE (12:11)
--- NOTE | 2016-10-18 17:32 | PN ---
BHS COWS - Scale Resting Pulse: 0= [place] 80 or Below Sweatin= Chills/Flushing Restless Observation: 1= Difficult to Sit Still Pupil Size: 0= Normal to Room Light Bone or Joint Aches: 2= Severe Diffuse Aches Runny Nose/ Eye Tearin= Runny Nose/Eyes GI Upset > 30mins: 2= Nausea/Diarrhea Tremor Observation of Outstretched Hands: 2= Slight Tremor Visible Yawning Observation: 1= 1-2x During Session Anxiety or Irritability: 2=Irritable/Anxious Goose Flesh Skin: 3=Piloerection COWS Score: 16 BHS Progress Note (SOAP) Subjective: Stomach Cramping, Nausea, Sweating, Interrupted Sleep, Itchy Skin, Body Aches. Objective: PT. A & O X 3, OBSERVED AMBULATING ON UNIT. 10/18/16 17:29 Vital Signs Temperature 98.1 F 10/18/16 14:34 Pulse Rate 71 10/18/16 14:34 Respiratory Rate 18 10/18/16 14:34 Blood Pressure 116/71 10/18/16 14:34 O2 Sat by Pulse Oximetry (%) Laboratory Last Values WBC 5.6 K/mm3 (4.0-10.0) D 10/16/16 07:00 RBC 4.39 M/mm3 (3.60-5.2) 10/16/16 07:00 Hgb 13.3 GM/dL (10.7-15.3) D 10/16/16 07:00 Hct 39.5 % (32.4-45.2) 10/16/16 07:00 MCV 90.0 fl (80-96) 10/16/16 07:00 MCHC 33.6 g/dl (32.0-36.0) 10/16/16 07:00 RDW 13.7 % (11.6-15.6) D 10/16/16 07:00 Plt Count 185 K/MM3 (134-434) D 10/16/16 07:00 MPV 10.8 fl (7.5-11.1) 10/16/16 07:00 Sodium 145 mmol/L (136-145) 10/16/16 07:00 Potassium 3.9 mmol/L (3.5-5.1) 10/16/16 07:00 Chloride 110 mmol/L (98-107) H 10/16/16 07:00 Carbon Dioxide 27 mmol/L (21-32) 10/16/16 07:00 Anion Gap 8 (8-16) 10/16/16 07:00 BUN 17 mg/dL (7-18) 10/16/16 07:00 Creatinine 0.8 mg/dL (0.55-1.02) D 10/16/16 07:00 Creat Clearance w eGFR > 60 (>60) 10/16/16 07:00 Random Glucose 101 mg/dL (74-106) D 10/16/16 07:00 Calcium 8.5 mg/dL (8.5-10.1) 10/16/16 07:00 Total Bilirubin 0.4 mg/dL (0.2-1.0) D 10/16/16 07:00 AST 74 U/L (15-37) H 10/16/16 07:00 ALT 159 U/L (12-78) H D 10/16/16 07:00 Alkaline Phosphatase 78 U/L (45-117) D 10/16/16 07:00 Total Protein 6.8 g/dl (6.4-8.2) 10/16/16 07:00 Albumin 3.4 g/dl (3.4-5.0) 10/16/16 07:00 Urine Color Dkyellow 10/17/16 11:30 Urine Appearance Cloudy 10/17/16 11:30 Urine pH 6.0 (5.0-8.0) 10/17/16 11:30 Ur Specific [place] 1.023 (1.001-1.035) 10/17/16 11:30 Urine Protein Negative (NEGATIVE) 10/17/16 11:30 Urine Glucose (UA) Negative (NEGATIVE) 10/17/16 11:30 Urine Ketones Negative (NEGATIVE) 10/17/16 11:30 Urine Blood Negative (NEGATIVE) 10/17/16 11:30 Urine Nitrite Positive (NEGATIVE) 10/17/16 11:30 Urine Bilirubin Negative (NEGATIVE) 10/17/16 11:30 Urine Urobilinogen Negative E.U./dl (0.2-1.0) 10/17/16 11:30 Ur Leukocyte Esterase 3+ (NEGATIVE) H 10/17/16 11:30 Urine RBC 11 /hpf (0-3) 10/17/16 11:30 Urine WBC 87 /hpf (3-5) 10/17/16 11:30 Ur Epithelial Cells Moderate /hpf (FEW) 10/17/16 11:30 Urine Bacteria Rare /hpf (NONE SEEN) 10/17/16 11:30 Urine Mucus Many 10/17/16 11:30 Urine Yeast Rare 10/17/16 11:30 RPR Titer Nonreactive (NONREACTIVE) 10/16/16 07:00 HIV 1&2 Antibody Screen Negative 10/16/16 08:00 HIV P24 Antigen Negative 10/16/16 08:00 LABS NOTED. Assessment: 10/18/16 17:30 WITHDRAWAL SYMPTOMS. Plan: CONTINUE DETOX. BENADRYL, 25 MG PO X 1 FOR ITCHING. ADVISED PATIENT TO FOLLOW-UP WITH APPRAISER IRRIGATION TAX / REHAB MEDICAL PROVIDER AFTER DISCHARGE FROM DETOX FOR GENERAL MEDICAL ASSESSMENT AND FOR ABNORMAL ADMISSION LAB VALUES.
[2016-10-18] MEDS: diphenhydrAMINE HCL 50 MG CAPSULE PO PRN (22:30)
[2016-10-18] MEDS: THIAMINE HCL 100 MG TABLET (FP) PO SCH (23:35)
[2016-10-19] MEDS ORDERED: METHADONE HCL 10 MG TABLET (FOR DETOX USE ONLY) PO ONE (10:00)
[2016-10-19] MEDS: PRENATAL VITAMINS W/ FOLIC ACID TABLET (FP) PO SCH (10:19)
[2016-10-19] MEDS: BACITRACIN 0.9 GM PACKET TP SCH ×2 (10:19→22:05)
[2016-10-19] MEDS: levETIRAcetam 500 MG TABLET (FP) PO SCH ×2 (10:19→22:05)
[2016-10-19] MEDS: NICOTINE 21 MG/24 HOURS TOPICAL PATCH TD SCH (10:19)
--- NOTE | 2016-10-19 11:09 | PN ---
BHS Progress Note (SOAP) Subjective: Sweating,interrupted sleep,restless Objective: 10/19/16 11:06 Vital Signs - 8 hr 10/19/16 10/19/16 10/19/16 03:30 06:00 10:00 Temperature 97.3 F L 97.5 F L Pulse Rate 53 L 70 Respiratory 18 18 18 Rate Blood Pressure 105/67 101/74 Laboratory Tests 10/16/16 10/16/16 10/16/16 07:00 07:00 07:00 WBC 5.6 D RBC 4.39 Hgb 13.3 D Hct 39.5 MCV 90.0 MCHC 33.6 RDW 13.7 D Plt Count 185 D MPV 10.8 Sodium 145 Potassium 3.9 Chloride 110 H Carbon Dioxide 27 Anion Gap 8 BUN 17 Creatinine 0.8 D Creat Clearance w eGFR > 60 Random Glucose 101 D Calcium 8.5 Total Bilirubin 0.4 D AST 74 H ALT 159 H D Alkaline Phosphatase 78 D Total Protein 6.8 Albumin 3.4 Urine Color Urine Appearance Urine pH Ur Specific [place] Urine Protein Urine Glucose (UA) Urine Ketones Urine Blood Urine Nitrite Urine Bilirubin Urine Urobilinogen Ur Leukocyte Esterase Urine RBC Urine WBC Ur Epithelial Cells Urine Bacteria Urine Mucus Urine Yeast RPR Titer Nonreactive HIV 1&2 Antibody Screen HIV P24 Antigen 10/16/16 10/17/16 08:00 11:30 WBC RBC Hgb Hct MCV MCHC RDW Plt Count MPV Sodium Potassium Chloride Carbon Dioxide Anion Gap BUN Creatinine Creat Clearance w eGFR Random Glucose Calcium Total Bilirubin AST ALT Alkaline Phosphatase Total Protein Albumin Urine Color Dkyellow Urine Appearance Cloudy Urine pH 6.0 Ur Specific [place] 1.023 Urine Protein Negative Urine Glucose (UA) Negative Urine Ketones Negative Urine Blood Negative Urine Nitrite Positive Urine Bilirubin Negative Urine Urobilinogen Negative Ur Leukocyte Esterase 3+ H Urine RBC 11 Urine WBC 87 Ur Epithelial Cells Moderate Urine Bacteria Rare Urine Mucus Many Urine Yeast Rare RPR Titer HIV 1&2 Antibody Screen Negative HIV P24 Antigen Negative U/A + for nitrite,leuk esterase & bacteria is consistent with UTI Assessment: 10/19/16 11:08 Withdrawal sx. Plan: Continue detox
[2016-10-19] MEDS: SULFAMETHOXAZOLE/TRIMETHOPRIM 800MG/160MG D.S. TABLET PO SCH ×2 (15:13→22:05)
[2016-10-19] MEDS: hydrOXYzine PAMOATE 50 MG CAPSULE (FP) PO PRN (22:05)
[2016-10-19] MEDS: THIAMINE HCL 100 MG TABLET (FP) PO SCH (22:05)
[2016-10-20] MEDS ORDERED: METHADONE HCL 5 MG TABLET (FOR DETOX USE ONLY) PO ONE (06:00)
[2016-10-20] MEDS: levETIRAcetam 500 MG TABLET (FP) PO SCH (09:01)
[2016-10-20 09:25] VITALS: BP 111/72; PULSE 75; TEMP 97
--- NOTE | 2016-10-20 09:29 | DS ---
[facility] Detox Discharge Summary Admission Date: 10/15/16 Discharge Date: 10/20/16 - History Present History: Alcohol Dependence, Opioid Dependence - Physical Exam Results Vital Signs: Vital Signs Temperature 97.0 F L 10/20/16 09:24 Pulse Rate 75 10/20/16 09:24 Respiratory Rate 16 10/20/16 09:24 Blood Pressure 111/72 10/20/16 09:24 O2 Sat by Pulse Oximetry (%) - Treatment Hospital Course: Detox Protocol Followed, Detoxed Safely, Responded well, Discharged Condition Good, Rehab Referral Accepted - Medication Discharge Medications: Ambulatory Orders Dextroamphetamine/Amphetamine [Adderall Xr 30 mg Capsule] 30 mg PO DAILY - Diagnosis (1) Nicotine dependence Current Visit: Yes Status: Chronic (2) Opioid dependence with withdrawal Current Visit: Yes Status: Chronic (3) Seizure Current Visit: Yes Status: Chronic (4) ADHD (attention deficit hyperactivity disorder) Current Visit: No Status: Chronic (5) Anxiety disorder Current Visit: No Status: Chronic (6) Chronic low back pain Current Visit: Yes Status: Chronic Qualifiers: Back pain laterality: unspecified (7) Lumbar herniated disc Current Visit: No Status: Chronic (8) Drug-induced mood disorder Current Visit: No Status: Suspected - AMA Did Patient Leave Against Medical Advice: No
== END 2016-10-20 09:02 | disposition home or self-care (01) | DRG 773 ==
LOC: YASAS 18:06 → Y6N 20:36
PROVIDERS: ADMIT Internal Medicine Addiction Medicine; ATTEND Internal Medicine Addiction Medicine
PROC: HZ2ZZZZ Detoxification Services for Substance Abuse Treatment (ICD-10-PCS; principal; 2016-10-15)
DX: F11.23 Opioid dependence with withdrawal (principal); F17.210 Nicotine dependence, cigarettes, uncomplicated; F90.9 Attention-deficit hyperactivity disorder, unspecified type; F41.9 Anxiety disorder, unspecified; F19.24 Other psychoactive substance dependence with psychoactive substance-induced mood disorder; G40.909 Epilepsy, unspecified, not intractable, without status epilepticus; M54.5 Low back pain; G89.29 Other chronic pain; M51.26 Other intervertebral disc displacement, lumbar region; N39.0 Urinary tract infection, site not specified
CPT/HCPCS: 36415; 80053; 81003; 81015; 85027; 86593; 87086; 87186; 87389; 93005; 93010

== ENCOUNTER 2016-11-10 13:56 | Emergency (ER) | payer OTHER ==
[2016-11-10 14:01] VITALS: TEMP 98; BMI 23.6
[2016-11-10] MEDS ORDERED: ONDANSETRON 4 MG/2 ML VIAL ONE (16:44)
[2016-11-10] MEDS ORDERED: FAMOTIDINE 20 MG/50 ML IVPB 50 ML IVPB ONE (16:45)
--- NOTE | 2016-11-10 16:55 | PDOC ---
History of Present Illness - General Chief Complaint: Pain Stated Complaint: CHEST PAIN, ABD PAIN, Time Seen by Provider: 11/10/16 15:44 History Source: Patient Exam Limitations: No Limitations - History of Present Illness Initial Comments: 11/10/16 16:55 CHIEF COMPLAINT: Abdominal pain HISTORY OF PRESENT ILLNESS: This is a 26 year old female with a history of substance abuse (states not using drugs actively, no longer on methadone) who presents complaining of abdominal pain, vomiting, and chest pain. She reports that she is , but is unsure how far along (she thinks her last period might have been two months ago). [facility] to [facility] , but was sent to the ED for evaluation after she stated all of the above complaints. Vital signs on arrival are notable for pulse of 104. REVIEW OF SYSTEMS: GENERAL/CONSTITUTIONAL: No fever or chills. No weakness. No weight change. CARDIOVASCULAR: Chest pain after many episodes of vomiting. No palpitations. RESPIRATORY: No cough, wheezing, or shortness of breath. GASTROINTESTINAL: Vomiting and inability to tolerate fluids. No diarrhea or constipation. GENITOURINARY: No dysuria, frequency, or change in urination. No vaginal bleeding. MUSCULOSKELETAL: No joint or muscle swelling or pain. No neck or back pain. SKIN: No rash or easy bruising. NEUROLOGIC: No headache, vertigo, loss of consciousness, or loss of sensation. PSYCHIATRIC: No depression or anxiety. ENDOCRINE: No increased thirst. No abnormal weight change. HEMATOLOGIC/LYMPHATIC: No anemia, easy bleeding, or history of blood clots. ALLERGIC/IMMUNOLOGIC: No hives or skin allergy. No latex allergy. PHYSICAL EXAM: GENERAL: The patient is awake, alert, and fully oriented, in no acute distress. ENT: Pupils equal, round and reactive to light, extraocular movements intact, sclera anicteric, conjunctiva clear. Neck supple. LUNGS: Clear to auscultation bilaterally. Normal excursion. No respiratory distress or use of accessory muscles. CV: RRR, S1/S2, no MRG. Cap refill < 2 sec. ABDOMEN: Soft, non-distended, non-tender. EXTREMITIES: Normal range of motion, no edema. NEUROLOGICAL: Normal speech, normal gait. CN II-XII grossly intact. PSYCH: Normal mood, normal affect. SKIN: Warm, dry, normal turgor, no rashes or lesions noted. Past History - Past Medical History Allergies/Adverse Reactions: Allergies Allergy/AdvReac Type Severity Reaction Status Date / Time No Known Allergies Allergy Verified 08/13/16 14:27 Home Medications: Ambulatory Orders Dextroamphetamine/Amphetamine [Adderall Xr 30 mg Capsule] 30 mg PO DAILY Famotidine [Pepcid] 20 mg PO DAILY #30 tablet 11/10/16 Ondansetron [Zofran Odt -] 4 mg SL TID PRN #21 od.tablet 11/10/16 Anemia: No Asthma: No Cancer: No Cardiac Disorders: No CVA: No COPD: No CHF: No Dementia: No Diabetes: No GI Disorders: No Disorders: No HTN: No Hypercholesterolemia: No Kidney Stones: No Liver Disease: No Psychiatric Problems: Yes (ANXIETY.) Suicide Attempt (Hx): No Seizures: Yes (ON ) Thyroid Disease: No - Surgical History Abdominal Surgery: Yes Appendectomy: No Cardiac Surgery: No Cholecystectomy: No Lung Surgery: No Neurologic Surgery: No Orthopedic Surgery: No - Reproductive History PID: No - Psycho/Social/Smoking Cessation Hx Anxiety: Yes Suicidal Ideation: No Smoking Status: Yes Smoking History: Current every day smoker Have you smoked in the past 12 months: Yes Number of Cigarettes Smoked Daily: 2 Information on smoking cessation initiated: Yes 'Breaking Loose' booklet given: 11/10/16 Hx Alcohol Use: No Drug/Substance Use Hx: No Substance Use Type: None Hx Substance Use Treatment: Yes (REHAB AND DETOX ) *Physical Exam - Vital Signs Last Vital Signs Temp Pulse Resp BP Pulse Ox 98 F 104 H 18 105/66 98 11/10/16 13:59 11/10/16 13:59 11/10/16 13:59 11/10/16 13:59 11/10/16 13:59 ED Treatment Course - LABORATORY CBC & Chemistry Diagram: 11/10/16 16:33 11/10/16 16:33 - RADIOLOGY Radiology Studies Ordered: Category Date Time Status <14WKS US [US] Stat Ultrasound 11/10/16 16:30 Ordered - Medications Given in the ED: ED Medications Discontinued Medications Generic Name Dose Route Start Last Admin Trade Name Freq PRN Reason Stop Dose Admin Ondansetron HCl 4 mg 11/10/16 16:29 11/10/16 16:50 Zofran Injection IVPUSH 11/10/16 16:30 4 mg ONCE ONE Administration Medical Decision Making - Medical Decision Making 11/10/16 18:08 A/P: 26 year old female with abdominal pain, vomiting, and chest pain. Chest pain occurred after many episodes of vomiting; do not suspect cardiac etiology. 1. EKG 2. Basic labs and beta hcg 3. Transvaginal u/s to confirm IUP 4. IVF, Zofran 4mg IVP, Pepcid 20mg IVPB 5. Reassess 11/10/16 18:14 Bhcg is 450 U/s interpreted by radiology: small fluid collection with appearance of a gestational sac, daimeter corresponding to gestational age of 4 weeks 6 days. No yolk sac or pole is identified. Early IUP is suspected but followup beta hcg and ultrasonography are indicated. Patient is tolerating PO. Will dc with instructions to return for repeat beta and u/s. *DC/Admit/Observation/Transfer Diagnosis at time of Disposition: Abdominal pain with vomiting Qualifiers: Weeks of gestation: less than 8 weeks Qualified Code(s): Z3A.01 - Less than 8 weeks gestation of - Discharge Dispostion Admit: No - Prescriptions Prescriptions: Famotidine [Pepcid] 20 mg PO DAILY #30 tablet Ondansetron [Zofran Odt -] 4 mg SL TID PRN #21 od.tablet PRN Reason: vomiting - Referrals Referrals: Nate Mota MD [Staff Physician] - 1 week (quality assurance manager) - Patient Instructions Printed Discharge Instructions: DI for Hyperemesis Gravidarum Additional Instructions: -Rest and stay well-hydrated -Take Pepcid for stomach discomfort and Zofran as needed for vomiting -Follow up with [facility] -Return here in 3-5 days for repeat blood work and u/s, or sooner for repeated episodes of chest pain, inability to keep down fluids, or any other concerning symptoms
[2016-11-10 16:59] LABS: EOSINOPHIL 1.4 % (0-4.5); MCHC 33.2 g/dl (32.0-36.0); MEAN CELL VOLUME 87.4 fl (80-96); MEAN PLT VOLUME 9.9 fl (7.5-11.1); NEUTROPHILS 69.1 % (42.8-82.8); PLATELET COUNT 265 K/MM3 (134-434); WHITE BLOOD COUNT 8.7 K/mm3 (4.0-10.0)
[2016-11-10 17:17] LABS: ALBUMIN 3.9 g/dl (3.4-5.0); ANION GAP 9 (8-16); BILIRUBIN,TOTAL 0.5 mg/dL (0.2-1.0); CALCIUM 8.7 mg/dL (8.5-10.1); CO2 25 mmol/L (21-32); COCKROFT - GAULT 119.9435; CREATININE 0.8 mg/dL (0.55-1.02); GLUCOSE,RANDOM 109 mg/dL (74-106); SGOT/AST 56 U/L (15-37); SGPT/ALT 133 U/L (12-78); TOT PROT 7.1 g/dl (6.4-8.2)
[2016-11-10 17:20] LABS: ALK PHOS 82 U/L (45-117)
[2016-11-10 17:47] LABS: URINE APPEARANCE CLEAR; URINE BILIRUBIN NEGATIVE (NEGATIVE); URINE BLOOD NEGATIVE (NEGATIVE); URINE COLOR YELLOW; URINE GLUCOSE (UA) NEGATIVE (NEGATIVE); URINE KETONE NEGATIVE (NEGATIVE); URINE LEUK ESTERASE NEGATIVE (NEGATIVE); URINE NITRITE NEGATIVE (NEGATIVE); URINE PROTEIN NEGATIVE (NEGATIVE); URINE UROBILINOGEN NEGATIVE E.U./dl (0.2-1.0)
[2016-11-10 19:01] LABS: URINE MARIJUANA THC NEGATIVE ng/ml (CUTOFF=50)
[2016-11-10 19:07] VITALS: BP 119/70; PULSE 72
--- NOTE | 2016-11-11 17:13 | EKG ---
Test Reason : Blood Pressure : / mmHG Vent. Rate : 083 BPM Atrial Rate : 083 BPM P-R Int : 136 ms QRS Dur : 078 ms QT Int : 396 ms P-R-T Axes : 065 022 053 degrees QTc Int : 465 ms NORMAL SINUS RHYTHM NORMAL ECG WHEN COMPARED WITH ECG OF 15-OCT-2016 20:09, NO SIGNIFICANT CHANGE WAS FOUND Confirmed by JUANCHO BELCHER MD ([id number]) on 11/11/2016 5:13:37 PM Referred By: Confirmed By:JUANCHO BELCHER MD
== END 2016-11-10 19:09 | disposition home or self-care (01) ==
LOC: JER 13:56
PROC: 3E033GC Introduction of Other Therapeutic Substance into Peripheral Vein, Percutaneous Approach (ICD-10-PCS; principal; 2016-11-10)
DX: O21.0 Mild hyperemesis gravidarum (principal); Z3A.01 Less than 8 weeks gestation of pregnancy; G40.909 Epilepsy, unspecified, not intractable, without status epilepticus; F41.9 Anxiety disorder, unspecified
CPT/HCPCS: 36415; 76801-TC; 80053; 80307; 81003; 83690; 84702; 85025; 93005; 93010; 96365; 96375; 99283-25

== ENCOUNTER 2016-11-13 15:24 | Emergency (ER) | payer OTHER ==
[2016-11-13 15:34] VITALS: BP 132/86; PULSE 117; TEMP 98.9; BMI 24.3
--- NOTE | 2016-11-13 17:55 | PDOC ---
History of Present Illness <Lawanda Hays - Last Filed: 11/13/16 20:23> - History of Present Illness Initial Comments: 11/13/16 17:57 Patient is a 26 year old female (12 weeks) with no significant medical hx who is presenting to the ED with progressive left suprapubic pain, nausea and vomiting for one week. The patient states shes been [facility] for her and she was sent to the ED for rule out ectopic because her has not been visible on US. The patient states she has not been able to sleep or keep anything down. She was given Zofran and Reglan by [facility] which she reports has not helped. The patients LNMP was 08/2016 and she reports having some spotting early this month. Denies any fevers , chills, vaginal bleeding, discharge, dysuria, hematuria, or diarrhea. /A1 <Riana Hodge - Last Filed: 11/13/16 20:40> - General Chief Complaint: Pain Stated Complaint: PAIN, 12 WKS Past History - Past Medical History Anemia: No Asthma: No Cancer: No Cardiac Disorders: No CVA: No COPD: No CHF: No Dementia: No Diabetes: No GI Disorders: No Disorders: No HTN: No Hypercholesterolemia: No Kidney Stones: No Liver Disease: No Psychiatric Problems: Yes (ANXIETY.) Suicide Attempt (Hx): No Seizures: Yes (2016-[facility] ) Thyroid Disease: No - Surgical History Abdominal Surgery: Yes Appendectomy: No Cardiac Surgery: No Cholecystectomy: No Lung Surgery: No Neurologic Surgery: No Orthopedic Surgery: No - Reproductive History (#): 3 Para: 1 PID: No - Psycho/Social/Smoking Cessation Hx Anxiety: Yes Suicidal Ideation: No Smoking Status: Yes Smoking History: Current every day smoker Have you smoked in the past 12 months: Yes Number of Cigarettes Smoked Daily: 2 Information on smoking cessation initiated: No 'Breaking Loose' booklet given: 11/10/16 Hx Alcohol Use: No Drug/Substance Use Hx: No Substance Use Type: None Hx Substance Use Treatment: Yes (REHAB AND DETOX ) <Lawanda Hays - Last Filed: 11/13/16 20:23> <Riana Hodge - Last Filed: 11/13/16 20:40> - Past Medical History Allergies/Adverse Reactions: Allergies Allergy/AdvReac Type Severity Reaction Status Date / Time No Known Allergies Allergy Verified 11/13/16 15:32 Home Medications: Ambulatory Orders Dextroamphetamine/Amphetamine [Adderall Xr 30 mg Capsule] 30 mg PO DAILY Review of Systems - Review of Systems Comments:: 11/13/16 17:57 GENERAL/CONSTITUTIONAL: No fever or chills. No weakness. HEAD, EYES, EARS, NOSE AND THROAT: No change in vision. No ear pain or discharge. No sore throat. CARDIOVASCULAR: No chest pain or shortness of breath. RESPIRATORY: No cough, wheezing, or hemoptysis. GASTROINTESTINAL: Left suprapubic pain, nausea, vomiting. No diarrhea or constipation. GENITOURINARY: No dysuria, frequency, or change in urination. MUSCULOSKELETAL: No joint or muscle swelling or pain. No neck or back pain. ENDOCRINE: No increased thirst. No abnormal weight change. SKIN: No rash NEUROLOGIC: No headache, vertigo, loss of consciousness, or change in strength/ sensation. <Riana Hodge - Last Filed: 11/13/16 20:40> *Physical Exam - Vital Signs Last Vital Signs Temp Pulse Resp BP Pulse Ox 98.9 F 117 H 20 132/86 97 11/13/16 15:32 11/13/16 15:32 11/13/16 15:32 11/13/16 15:32 11/13/16 15:32 <Lawanda Hays - Last Filed: 11/13/16 20:23> - Vital Signs Last Vital Signs Temp Pulse Resp BP Pulse Ox 98.9 F 117 H 20 132/86 97 11/13/16 15:32 11/13/16 15:32 11/13/16 15:32 11/13/16 15:32 11/13/16 15:32 - Physical Exam Comments: 11/13/16 17:58 GENERAL: Awake, alert, and fully oriented, in no acute distress HEAD: No signs of trauma EYES: PERRLA, EOMI, sclera anicteric, conjunctiva clear ENT: Auricles normal inspection, hearing grossly normal, nares patent, oropharynx clear without exudates. Moist mucosa NECK: Normal ROM, supple, no lymphadenopathy, JVD, or masses LUNGS: Breath sounds equal, clear to auscultation bilaterally. No wheezes, and no crackles HEART: Regular rate and rhythm, normal S1 and S2, no murmurs, rubs or gallops ABDOMEN: Soft, LLQ and suprapubic tenderness, normoactive bowel sounds. No guarding, no rebound. No masses EXTREMITIES: Normal range of motion, no edema. No clubbing or cyanosis. No cords, erythema, or tenderness NEUROLOGICAL: Cranial nerves II through XII grossly intact. Normal speech, normal gait SKIN: Warm, Dry, normal turgor, no rashes or lesions noted. HEMATOLOGIC/LYMPHATIC: No anemia, easy bleeding, or history of blood clots. ALLERGIC/IMMUNOLOGIC: No hives or skin allergy. PELVIC: Left adnexal tenderness and fullness. No bleeding. <Riana Hodge - Last Filed: 11/13/16 20:40> ED Treatment Course - LABORATORY CBC & Chemistry Diagram: 11/13/16 18:13 11/13/16 18:13 <Lawanda Hays - Last Filed: 11/13/16 20:23> - LABORATORY CBC & Chemistry Diagram: 11/13/16 18:13 11/13/16 18:13 - RADIOLOGY Radiograph Interpretation: 11/13/16 20:39 Transvaginal US Impression: Suspected early IUP. Clinical and laboratory correlation and follow- up ultrasonography recommended. Please see discussion. Reported By: Surya De Guzman MD <Riana Hodge - Last Filed: 11/13/16 20:40> Medical Decision Making - Medical Decision Making 11/13/16 17:55 26 yo F currently 12 weeks , 1 prior ab, here with unwanted , n/v. [facility], was seen in ER 4 days ago. hcg was 400, empty uterus at that time. now with persistant n/v and abd pain . lower abd, central , no bleeding. no loss of fluid. LMP first week august, then had spotting in early october, no f/c no urinary complaints. on exam abd soft, bilat lower quad ttp, left adnexa ttp on pelvic, mild fullness. differential: early iup, ecoptic, ovarian cyst. plan bhcg, tvus, control vomiting with fluids, zofran, reassess. 11/13/16 18:09 11/13/16 20:26 pt ultrasound with small gestational sac, no yolk sac or pole. large ovarian cyst similar to prior ultrasound. pt refusing to wait for official results of ultrasound. will require repeat ultrasound in 4 8 - 72 hours. given warning signs for ectopic . tolerating po, eating sandwich while in ed. dc home. <Lawanda Hays - Last Filed: 11/13/16 20:23> *DC/Admit/Observation/Transfer - Discharge Dispostion Admit: No <Lawanda Hays - Last Filed: 11/13/16 20:23> - Attestations Scribe Attestion: 11/13/16 17:59 Documentation prepared by Riana Hodge, acting as medical secretary for Lawanda Hays MD. <Riana Hodge - Last Filed: 11/13/16 20:40> Diagnosis at time of Disposition: Early stage of , Substance abuse - Discharge Dispostion Disposition: HOME - Referrals Referrals: Jones Nuñez MD [Primary Care Provider] - - Patient Instructions Printed Discharge Instructions: DI for Ectopic Additional Instructions: you should follow up with your mottler operator. you will need a repeat ultrasound and lab work within 48 hours. return for sudden worsening pain, vomiting or any concerns. you should obstain from all substance abuse while
[2016-11-13] MEDS ORDERED: SODIUM CHLORIDE 1,000 ML IV STA (17:58)
[2016-11-13] MEDS ORDERED: ONDANSETRON 4 MG/2 ML VIAL IVPUSH ONE (17:58)
[2016-11-13 18:34] LABS: URINE APPEARANCE CLEAR; URINE BILIRUBIN NEGATIVE (NEGATIVE); URINE BLOOD NEGATIVE (NEGATIVE); URINE COLOR AMBER; URINE GLUCOSE (UA) NEGATIVE (NEGATIVE); URINE KETONE NEGATIVE (NEGATIVE); URINE LEUK ESTERASE NEGATIVE (NEGATIVE); URINE NITRITE NEGATIVE (NEGATIVE); URINE PROTEIN NEGATIVE (NEGATIVE); URINE UROBILINOGEN 2.0 E.U/dl E.U./dl (0.2-1.0)
[2016-11-13 18:41] LABS: BASOPHIL 1.4 % (0-2.0); EOSINOPHIL 1.8 % (0-4.5); MCH 29.1 pg (25.7-33.7); MCHC 32.8 g/dl (32.0-36.0); MEAN CELL VOLUME 88.6 fl (80-96); MEAN PLT VOLUME 10.2 fl (7.5-11.1); NEUTROPHILS 65.3 % (42.8-82.8); PLATELET COUNT 235 K/MM3 (134-434); RDW 13.8 % (11.6-15.6); WHITE BLOOD COUNT 9.6 K/mm3 (4.0-10.0)
[2016-11-13 19:22] LABS: ALBUMIN 3.9 g/dl (3.4-5.0); ALK PHOS 76 U/L (45-117); ANION GAP 11 (8-16); BILIRUBIN,TOTAL 0.5 mg/dL (0.2-1.0); CALCIUM 8.6 mg/dL (8.5-10.1); CO2 25 mmol/L (21-32); CREATININE 0.8 mg/dL (0.55-1.02); GLUCOSE,RANDOM 78 mg/dL (74-106); SGOT/AST 50 U/L (15-37); SGPT/ALT 113 U/L (12-78)
[2016-11-13 19:49] LABS: URINE MARIJUANA THC NEGATIVE ng/ml (CUTOFF=50)
== END 2016-11-13 20:41 | disposition home or self-care (01) ==
LOC: JER 15:24
DX: O26.891 Other specified pregnancy related conditions, first trimester (principal); F19.10 Other psychoactive substance abuse, uncomplicated; Z3A.12 12 weeks gestation of pregnancy
CPT/HCPCS: 36415; 76817-TC; 80053; 80307; 81003; 84702; 85025; 99282-25

== ENCOUNTER 2016-12-10 01:28 | Inpatient (IN) | payer OTHER ==
[2016-12-10] MEDS ORDERED: NICOTINE POLACRILEX 2 MG GUM BC PRN (02:19)
[2016-12-10] MEDS ORDERED: MAG HYDROX/AL HYDROX/SIMETH 30 ML UNIT-DOSE CUP PO PRN (02:19)
[2016-12-10] MEDS ORDERED: LOPERAMIDE HCL 2 MG CAPSULE PO PRN (02:19)
[2016-12-10] MEDS ORDERED: ACETAMINOPHEN 325 MG TABLET (FP) PO PRN (02:19)
[2016-12-10] MEDS ORDERED: METHADONE HCL 10 MG TABLET (FOR DETOX USE ONLY) PO ONE ×3 (02:19→23:00)
[2016-12-10] MEDS ORDERED: MAGNESIUM CITRATE 300 ML BOTTLE PO PRN (02:19)
[2016-12-10] MEDS ORDERED: diphenhydrAMINE HCL 50 MG CAPSULE PO PRN (02:19)
[2016-12-10] MEDS ORDERED: MAGNESIUM HYDROX 2400MG/30ML ORAL SUSPENSION 30 ML CUP PO PRN (02:19)
[2016-12-10] MEDS ORDERED: guaiFENesin/D-METHORPHAN HB 10 ML UNIT-DOSE CUPS PO PRN (02:19)
[2016-12-10] MEDS ORDERED: MENTHOL/PHENOL 1 EACH UD MM PRN (02:19)
[2016-12-10] MEDS ORDERED: IBUPROFEN 400 MG TABLET (FP) PO PRN (02:19)
[2016-12-10] MEDS ORDERED: P-EPHED 60MG/TRIPROLIDI 2.5MG TABLET PO PRN (02:19)
--- NOTE | 2016-12-10 02:28 | HP ---
COWS - Scale Resting Pulse: 1= [place] 81-100 Sweatin=Flushed/Facial Moisture Restless Observation: 1= Difficult to Sit Still Pupil Size: 2= Moderately Dilated Bone or Joint Aches: 4=Acute Joint/Muscle Pain Runny Nose/ Eye Tearin= None GI Upset > 30mins: 0= None Tremor Observation: 2= Slight Tremor Visible Yawning Observation: 2= >3x During Session Anxiety or Irritability: 2=Irritable/Anxious Goose Flesh Skin: 0=Smooth Skin COWS Score: 16 Admission ROS S - HPI Chief Complaint: C/O WITHDRAWAL SX'S. SEEKING DETOX TXMENT Allergies/Adverse Reactions: Allergies Allergy/AdvReac Type Severity Reaction Status Date / Time No Known Allergies Allergy Verified 12/10/16 01:47 History of Present Illness: 26 Y.O. FEMALE WITH OPIOID DEPENDENCE ADMITTED TO DETOX. CLIENT IS KNOWN TO [facility]. SELF REFERRED. LONGEST CLEAN TIME 7 MONTHS. LAST HERE 09/2015. RECENT TOP Exam Limitations: No Limitations - Ebola screening Have you traveled outside of the country in the last 21 days: No Have you had contact with anyone from an Ebola affected area: No Have you been sick,other than usual withdrawal symptoms: No Do you have a fever: No - Review of Systems Constitutional: Chills, Malaise, Night Sweats, Changes in sleep EENT: reports: Tearing, Other (YAWNING) Respiratory: reports: No Symptoms reported Cardiac: reports: No Symptoms Reported GI: reports: Nausea : reports: No Symptoms Reported Musculoskeletal: reports: Joint Pain Integumentary: reports: Sweating Neuro: reports: Seizure Endocrine: reports: No Symptoms Reported Hematology: reports: No Symptoms Reported Psychiatric: reports: Anxious Other Systems: Reviewed and Negative Patient History - Patient Medical History Hx Anemia: No Hx Asthma: No Hx Chronic Obstructive Pulmonary Disease (COPD): No Hx Cancer: No Hx Cardiac Disorders: No Hx Congestive Heart Failure: No Hx Hypertension: No Hx Hypercholesterolemia: No Hx Pacemaker: No HX Cerebrovascular Accident: No Hx Seizures: Yes (DENIES DRUG RELATED) Hx Dementia: No Hx Diabetes: No Hx Gastrointestinal Disorders: No Hx Liver Disease: No Hx Genitourinary Disorders: No Hx Sexually Transmitted Disorders: No Hx Renal Disease (ESRD): No Hx Thyroid Disease: No Hx Human Immunodeficiency Virus (HIV): No Hx Hepatitis C: No Hx Depression: Yes Hx Suicide Attempt: No Hx Bipolar Disorder: No Hx Schizophrenia: No Other Medical History: ANXIETY/ ADHD - Patient Surgical History Past Surgical History: Yes Hx Neurologic Surgery: No Hx Cataract Extraction: No Hx Cardiac Surgery: No Hx Lung Surgery: No Hx Breast Surgery: No Hx Breast Biopsy: No Hx Abdominal Surgery: Yes Hx Appendectomy: No Hx Cholecystectomy: No Hx Genitourinary Surgery: No Hx Section: Yes Hx Orthopedic Surgery: No Other Surgical History: IUD 2 years ago, TOP 10/2015 Anesthesia Reaction: No - PPD History Previous Implant?: Yes Documented Results: Negative w/proof Implanted On Prior [facility] Admission?: Yes Date: 05/31/16 Results: 0mm PPD to be Administered?: No - Reproductive History Patient is a Female of Child Bearing Age (11 -55 yrs old): Yes LMP comment: [place] 10/2015 [place] [facility] [place] - Smoking Cessation Smoking history: Current every day smoker Have you smoked in the past 12 months: Yes Aproximately how many cigarettes per day: 10 Cigars Per Day: 0 Hx Chewing Tobacco Use: No Initiated information on smoking cessation: Yes 'Breaking Loose' booklet given: 12/10/16 - Substance & Tx. History Hx Alcohol Use: No Hx Substance Use: Yes Substance Use Type: Cocaine, Heroin Hx Substance Use Treatment: Yes ([facility]) - Substances Abused HEROINE Route: Injection Frequency: Daily Amount used: 8 BAGS Age of first use: 23 Date of Last Use: 12/09/16 COCAINE Route: Injection Frequency: 3-6 times per week Amount used: $20 Age of first use: 24 Date of Last Use: 12/09/16 Family Disease History - Family Disease History Family Disease History: Other: Grandparent (GF-HTN), Father (HTN), Mother (HTN/ ALCOHOLISM) Admission Physical Exam [facility] - Physical General Appearance: Yes: Appropriately Dressed, Mild Distress, Anxious HEENTM: Yes: EOMI, Normocephalic, Normal Voice, AURA, Pharynx Normal, Other ( DILATED PUPILS, TEARING) Respiratory: Yes: Chest Non-Tender, Lungs Clear, Normal Breath Sounds, No Respiratory Distress, No Accessory Muscle Use Neck: Yes: No masses,lesions,Nodules, Supple, Trachea in good position Breast: Yes: Breast Exam Deferred Cardiology: Yes: Regular Rhythm, Regular Rate, S1, S2 Abdominal: Yes: Normal Bowel Sounds, Non Tender, Soft Genitourinary: Yes: Within Normal Limits Back: Yes: Normal Inspection Musculoskeletal: Yes: full range of Motion Extremities: Yes: Normal Capillary Refill, Normal Range of Motion, Non-Tender Neurological: Yes: exam proctor II-XII NML intact, Fully Oriented, Alert, Motor Strength 5/5 Integumentary: Yes: Normal Color, Dry, Warm, Track Booker Lymphatic: Yes: Within Normal Limits - Diagnostic (1) Nicotine dependence Current Visit: Yes Status: Chronic (2) Opioid dependence with withdrawal Current Visit: Yes Status: Chronic (3) Seizure Current Visit: Yes Status: Chronic Comment: h/o of seizure last a week ago (4) Cocaine dependence, uncomplicated Current Visit: Yes Status: Chronic Cleared for Admission [facility] - Detox or Rehab [facility] Level of Care: Medically Managed Detox Regimen/Protocol: Methadone S Breath Alcohol Content Breath Alcohol Content: 0 Vital Signs - Vital Signs Vital Signs Refused: No Temperature: 98.6 F Temperature Source: Oral Pulse Rate: 86 Respiratory Rate: 20 Blood Pressure: 138/85 BP Location: Left Arm Blood Pressure Position: Sitting - Height Height: 5 ft 9 in - Weight Weight: 75.75 kg Weight Measurement Method: Standing Scale Body Mass Index (BMI): 24.6 Urine Pregancy Test - Test Device Lot Number: [id number] Expiration Date: 05/28/18 - Control Horizontal Line in Upper Control Window?: Yes - Result Urine Test Results: Negative- NO Line Present Urine Drug Screen - Test Device Lot Number: [id number] Expiration Date: 05/28/18 - Control Is Test Valid: Yes - Results Drug Screen Negative: No Urine Drug Screen Results: EMA-Cocaine, OPI-Opiates
[2016-12-10] MEDS: diazePAM 5 MG TABLET PO PRN ×3 (02:42→22:26)
[2016-12-10 02:45] VITALS: BMI 24.6
[2016-12-10] MEDS: hydrOXYzine PAMOATE 50 MG CAPSULE (FP) PO PRN (05:56)
--- NOTE | 2016-12-10 09:08 | CONSULT ---
[facility] Psychiatric Consult - Data Date of interview: 12/10/16 Admission source: [facility] Identifying data: This is 26 years old female with no psychiatric hospitalization history intoxicated with: Opioids, Cocaine and Nicotine Substance Abuse History: - Smoking Cessation. Smoking history: Current every day smoker. Have you smoked in the past 12 months: Yes. Aproximately how many cigarettes per day: 10. Cigars Per Day: 0. Hx Chewing Tobacco Use: No. Initiated information on smoking cessation: Yes. 'Breaking Loose' booklet given : 12/10/16. - Substance & Tx. History. Hx Alcohol Use: No. Hx Substance Use: Yes. Substance Use Type: Cocaine, Heroin. Hx Substance Use Treatment: Yes ( [facility] - Substances Abused. HEROINE. Route: Injection. Frequency: Daily. Amount used: 8 BAGS. Age of first use: 23. Date of Last Use: 12/09/16. COCAINE. Route: Injection. Frequency: 3-6 times per week. Amount used: $20. Age of first use: 24. Date of Last Use: 12/09/16 Medical History: Seizure history, Lumbar Herniation, UTI history Psychiatric History: Patioent rep[rots ADHD history, reports taking Ritalin mprior to admission, agrees to replace Ritalin with Strattera 50mg poqd Physical/Sexual Abuse/Trauma History: Denies, unclear Additional Comment: Strattera 50mg poqd Mental Status Exam - Mental Status Exam Alert and Oriented to: Person Cognitive Function: Fair Patient Appearance: Unkempt Mood: Sad Affect: Flat Patient Behavior: Sedated Speech Pattern: Delayed Voice Loudness: Mildly Soft/Quiet Thought Process: Circumstantial Thought Disorder: Being Controlled Hallucinations: Denies Suicidal Ideation: Denies Homicidal Ideation: Denies Insight/Judgement: Fair Sleep: Difficulty falling asleep Appetite: Weight gain Muscle strength/Tone: Moderate Hypotonicity Gait/Station: Shuffling Additional Comments: Strattera 50mg poqd Psychiatric Findings - Problem List ([place] 1, 2,3) (1) Cocaine dependence, uncomplicated Current Visit: Yes Status: Chronic (2) Nicotine dependence Current Visit: Yes Status: Chronic (3) Opioid dependence with withdrawal Current Visit: Yes Status: Chronic (4) Substance abuse Current Visit: No Status: Acute (5) ADHD (attention deficit hyperactivity disorder) Current Visit: No Status: Chronic (6) Drug-induced mood disorder Current Visit: No Status: Suspected - Initial Treatment Plan Initial Treatment Plan: Strattera 50mg poqd
[2016-12-10 09:56] LABS: MCH 29.5 pg (25.7-33.7); MCHC 33.6 g/dl (32.0-36.0); MEAN CELL VOLUME 87.7 fl (80-96); PLATELET COUNT 233 K/MM3 (134-434); RDW 14.8 % (11.6-15.6); WHITE BLOOD COUNT 7.7 K/mm3 (4.0-10.0)
[2016-12-10 10:43] LABS: ALBUMIN 3.9 g/dl (3.4-5.0); ALK PHOS 76 U/L (45-117); ANION GAP 8 (8-16); BILIRUBIN,TOTAL 0.9 mg/dL (0.2-1.0); CO2 28 mmol/L (21-32); COCKROFT - GAULT 143.055; CREATININE 0.7 mg/dL (0.55-1.02); GLUCOSE,RANDOM 96 mg/dL (74-106); SGOT/AST 48 U/L (15-37); SGPT/ALT 102 U/L (12-78); TOT PROT 7.1 g/dl (6.4-8.2)
[2016-12-10] MEDS: levETIRAcetam 500 MG TABLET (FP) PO SCH ×2 (10:45→22:26)
[2016-12-10] MEDS: PRENATAL VITAMINS W/ FOLIC ACID TABLET (FP) PO SCH (10:45)
[2016-12-10] MEDS: NICOTINE 14 MG/24 HOURS TOPICAL PATCH TD SCH (10:45)
[2016-12-10] MEDS: ATOMOXETINE HCL 25 MG CAPSULE PO SCH (10:46)
--- NOTE | 2016-12-10 11:10 | PN ---
[facility]HS COWS - Scale Resting Pulse: 0= [place] 80 or Below Sweatin=Flushed/Facial Moisture Restless Observation: 1= Difficult to Sit Still Pupil Size: 0= Normal to Room Light Bone or Joint Aches: 2= Severe Diffuse Aches Runny Nose/ Eye Tearin= Runny Nose/Eyes GI Upset > 30mins: 1= Stomach Cramp Tremor Observation of Outstretched Hands: 2= Slight Tremor Visible Yawning Observation: 2= >3x During Session Anxiety or Irritability: 2=Irritable/Anxious Goose Flesh Skin: 3=Piloerection COWS Score: 17 S Progress Note (SOAP) Subjective: agitation anxiety sweats shakes chills interrupted sleep Objective: 12/10/16 11:09 Vital Signs Temperature 98.1 F 12/10/16 09:59 Pulse Rate 80 12/10/16 09:59 Respiratory Rate 18 12/10/16 09:59 Blood Pressure 117/53 12/10/16 09:59 O2 Sat by Pulse Oximetry (%) Laboratory Tests 12/10/16 07:00 WBC 7.7 RBC 4.49 Hgb 13.2 Hct 39.4 MCV 87.7 MCHC 33.6 RDW 14.8 Plt Count 233 MPV 10.0 labs pending awake/alert ambulating no acute distress Assessment: 12/10/16 11:09 withdrawal sx Plan: continue detox increase fluids labs pending
--- NOTE | 2016-12-10 12:50 | EKG ---
Test Reason : Blood Pressure : / mmHG Vent. Rate : 052 BPM Atrial Rate : 052 BPM P-R Int : 126 ms QRS Dur : 086 ms QT Int : 458 ms P-R-T Axes : 022 041 039 degrees QTc Int : 425 ms SINUS BRADYCARDIA WITH SINUS ARRHYTHMIA OTHERWISE NORMAL ECG WHEN COMPARED WITH ECG OF 10-NOV-2016 14:06, VENT. RATE HAS DECREASED BY 31 BPM Confirmed by KOKO GAVIN MD ([id number]) on 12/10/2016 12:50:05 PM Referred By: Confirmed By:KOKO GAVIN MD
[2016-12-10] MEDS: THIAMINE HCL 100 MG TABLET (FP) PO SCH (22:26)
[2016-12-11] MEDS ORDERED: METHADONE HCL 10 MG TABLET (FOR DETOX USE ONLY) PO ONE (10:00)
[2016-12-11] MEDS: levETIRAcetam 500 MG TABLET (FP) PO SCH ×2 (10:37→22:41)
[2016-12-11] MEDS: ATOMOXETINE HCL 25 MG CAPSULE PO SCH (10:37)
[2016-12-11] MEDS: PRENATAL VITAMINS W/ FOLIC ACID TABLET (FP) PO SCH (10:37)
[2016-12-11] MEDS: NICOTINE 14 MG/24 HOURS TOPICAL PATCH TD SCH (10:37)
[2016-12-11] MEDS: diazePAM 5 MG TABLET PO PRN ×3 (10:39→22:41)
--- NOTE | 2016-12-11 12:45 | PN ---
[facility] COWS - Scale Resting Pulse: 0= [place] 80 or Below Sweatin=Flushed/Facial Moisture Restless Observation: 1= Difficult to Sit Still Pupil Size: 0= Normal to Room Light Bone or Joint Aches: 2= Severe Diffuse Aches Runny Nose/ Eye Tearin= Nasal Congestion GI Upset > 30mins: 0= None Tremor Observation of Outstretched Hands: 2= Slight Tremor Visible Yawning Observation: 1= 1-2x During Session Anxiety or Irritability: 2=Irritable/Anxious Goose Flesh Skin: 0=Smooth Skin COWS Score: 11 S Progress Note (SOAP) Subjective: shakes sweats interrupted sleep agitation chills Objective: 12/11/16 12:44 Vital Signs Temperature 97.2 F L 12/11/16 09:56 Pulse Rate 64 12/11/16 09:56 Respiratory Rate 18 12/11/16 09:56 Blood Pressure 95/73 12/11/16 09:56 O2 Sat by Pulse Oximetry (%) Laboratory Tests 12/10/16 12/10/16 12/10/16 07:00 07:00 07:00 WBC 7.7 RBC 4.49 Hgb 13.2 Hct 39.4 MCV 87.7 MCHC 33.6 RDW 14.8 Plt Count 233 MPV 10.0 Sodium 141 Potassium 3.8 Chloride 105 Carbon Dioxide 28 Anion Gap 8 BUN 20 H D Creatinine 0.7 Creat Clearance w eGFR > 60 Random Glucose 96 D Calcium 9.0 Total Bilirubin 0.9 D AST 48 H ALT 102 H Alkaline Phosphatase 76 Total Protein 7.1 Albumin 3.9 RPR Titer Hepatitis C Antibody >11.0 H 12/10/16 07:00 WBC RBC Hgb Hct MCV MCHC RDW Plt Count MPV Sodium Potassium Chloride Carbon Dioxide Anion Gap BUN Creatinine Creat Clearance w eGFR Random Glucose Calcium Total Bilirubin AST ALT Alkaline Phosphatase Total Protein Albumin RPR Titer Nonreactive Hepatitis C Antibody awake/alert ambulating no acute distress Assessment: 12/11/16 12:44 withdrawal sx Plan: continue detox increase fluids labs pending
[2016-12-11 19:59] LABS: URINE APPEARANCE CLEAR; URINE BILIRUBIN NEGATIVE (NEGATIVE); URINE BLOOD NEGATIVE (NEGATIVE); URINE COLOR YELLOW; URINE GLUCOSE (UA) NEGATIVE (NEGATIVE); URINE KETONE NEGATIVE (NEGATIVE); URINE LEUK ESTERASE NEGATIVE (NEGATIVE); URINE NITRITE NEGATIVE (NEGATIVE); URINE PROTEIN NEGATIVE (NEGATIVE); URINE UROBILINOGEN NEGATIVE E.U./dl (0.2-1.0)
[2016-12-11] MEDS: THIAMINE HCL 100 MG TABLET (FP) PO SCH (22:40)
[2016-12-11] MEDS: ZOLPIDEM TARTRATE 10 MG TABLET (PARK CARE ONLY) PO PRN (22:41)
[2016-12-12] MEDS: diazePAM 5 MG TABLET PO PRN ×4 (06:14→22:16)
[2016-12-12] MEDS ORDERED: METHADONE HCL 5 MG TABLET (FOR DETOX USE ONLY) PO ONE (10:00)
[2016-12-12] MEDS: levETIRAcetam 500 MG TABLET (FP) PO SCH ×2 (10:58→22:16)
[2016-12-12] MEDS: PRENATAL VITAMINS W/ FOLIC ACID TABLET (FP) PO SCH (10:58)
[2016-12-12] MEDS: ATOMOXETINE HCL 25 MG CAPSULE PO SCH (10:59)
[2016-12-12] MEDS: NICOTINE 14 MG/24 HOURS TOPICAL PATCH TD SCH (10:59)
--- NOTE | 2016-12-12 11:54 | PN ---
BHS Progress Note (SOAP) Subjective: sweats little chills anxiety Objective: 12/12/16 11:53 Vital Signs Temperature 98.2 F 12/12/16 11:10 Pulse Rate 87 12/12/16 11:10 Respiratory Rate 18 12/12/16 11:10 Blood Pressure 111/64 12/12/16 11:10 O2 Sat by Pulse Oximetry (%) awake/alert ambulating no acute distress Assessment: 12/12/16 11:53 withdrawal sx Plan: continue detox increase fluids
[2016-12-12] MEDS: THIAMINE HCL 100 MG TABLET (FP) PO SCH (22:15)
[2016-12-12] MEDS: ZOLPIDEM TARTRATE 10 MG TABLET (PARK CARE ONLY) PO PRN (22:16)
[2016-12-13] MEDS ORDERED: METHADONE HCL 5 MG TABLET (FOR DETOX USE ONLY) PO ONE (10:00)
[2016-12-13] MEDS: PRENATAL VITAMINS W/ FOLIC ACID TABLET (FP) PO SCH (10:32)
[2016-12-13] MEDS: ATOMOXETINE HCL 25 MG CAPSULE PO SCH (10:32)
[2016-12-13] MEDS: levETIRAcetam 500 MG TABLET (FP) PO SCH ×2 (10:32→22:43)
[2016-12-13] MEDS: NICOTINE 14 MG/24 HOURS TOPICAL PATCH TD SCH (10:34)
[2016-12-13] MEDS: hydrOXYzine PAMOATE 50 MG CAPSULE (FP) PO PRN ×2 (10:34→22:43)
--- NOTE | 2016-12-13 15:30 | PN ---
BHS Progress Note (SOAP) Subjective: Sweating,interrupted sleep,restless Objective: 12/13/16 15:27 Vital Signs - 8 hr 12/13/16 12/13/16 12/13/16 10:00 15:15 15:17 Temperature 98.1 F 98.1 F 97.5 F L Pulse Rate 58 L 58 L 80 Respiratory 18 18 16 Rate Blood Pressure 103/70 103/70 121/71 Laboratory Last Values WBC 7.7 K/mm3 (4.0-10.0) 12/10/16 07:00 RBC 4.49 M/mm3 (3.60-5.2) 12/10/16 07:00 Hgb 13.2 GM/dL (10.7-15.3) 12/10/16 07:00 Hct 39.4 % (32.4-45.2) 12/10/16 07:00 MCV 87.7 fl (80-96) 12/10/16 07:00 MCHC 33.6 g/dl (32.0-36.0) 12/10/16 07:00 RDW 14.8 % (11.6-15.6) 12/10/16 07:00 Plt Count 233 K/MM3 (134-434) 12/10/16 07:00 MPV 10.0 fl (7.5-11.1) 12/10/16 07:00 Sodium 141 mmol/L (136-145) 12/10/16 07:00 Potassium 3.8 mmol/L (3.5-5.1) 12/10/16 07:00 Chloride 105 mmol/L (98-107) 12/10/16 07:00 Carbon Dioxide 28 mmol/L (21-32) 12/10/16 07:00 Anion Gap 8 (8-16) 12/10/16 07:00 BUN 20 mg/dL (7-18) H D 12/10/16 07:00 Creatinine 0.7 mg/dL (0.55-1.02) 12/10/16 07:00 Creat Clearance w eGFR > 60 (>60) 12/10/16 07:00 Random Glucose 96 mg/dL (74-106) D 12/10/16 07:00 Calcium 9.0 mg/dL (8.5-10.1) 12/10/16 07:00 Total Bilirubin 0.9 mg/dL (0.2-1.0) D 12/10/16 07:00 AST 48 U/L (15-37) H 12/10/16 07:00 ALT 102 U/L (12-78) H 12/10/16 07:00 Alkaline Phosphatase 76 U/L (45-117) 12/10/16 07:00 Total Protein 7.1 g/dl (6.4-8.2) 12/10/16 07:00 Albumin 3.9 g/dl (3.4-5.0) 12/10/16 07:00 Urine Color Yellow 12/11/16 13:00 Urine Appearance Clear 12/11/16 13:00 Urine pH 5.0 (5.0-8.0) 12/11/16 13:00 Ur Specific [place] 1.020 (1.005-1.025) 12/11/16 13:00 Urine Protein Negative (NEGATIVE) 12/11/16 13:00 Urine Glucose (UA) Negative (NEGATIVE) 12/11/16 13:00 Urine Ketones Negative (NEGATIVE) 12/11/16 13:00 Urine Blood Negative (NEGATIVE) 12/11/16 13:00 Urine Nitrite Negative (NEGATIVE) 12/11/16 13:00 Urine Bilirubin Negative (NEGATIVE) 12/11/16 13:00 Urine Urobilinogen Negative E.U./dl (0.2-1.0) 12/11/16 13:00 Ur Leukocyte Esterase Negative (NEGATIVE) 12/11/16 13:00 RPR Titer Nonreactive (NONREACTIVE) 12/10/16 07:00 Hepatitis C Antibody >11.0 s/co ratio (0.0-0.9) H 12/10/16 07:00 labs noted Assessment: 12/13/16 15:27 Withdrawal sx Plan: Continue detox Pt. will be referred for Hep C treatment
[2016-12-13] MEDS: ZOLPIDEM TARTRATE 10 MG TABLET (PARK CARE ONLY) PO PRN (22:43)
[2016-12-13] MEDS: THIAMINE HCL 100 MG TABLET (FP) PO SCH (22:43)
[2016-12-14] MEDS ORDERED: METHADONE HCL 10 MG TABLET (FOR DETOX USE ONLY) PO ONE (10:00)
[2016-12-14] MEDS: PRENATAL VITAMINS W/ FOLIC ACID TABLET (FP) PO SCH (10:27)
[2016-12-14] MEDS: ATOMOXETINE HCL 25 MG CAPSULE PO SCH (10:27)
[2016-12-14] MEDS: levETIRAcetam 500 MG TABLET (FP) PO SCH ×2 (10:27→22:28)
[2016-12-14] MEDS: NICOTINE 14 MG/24 HOURS TOPICAL PATCH TD SCH (10:27)
--- NOTE | 2016-12-14 10:46 | PN ---
BHS Progress Note (SOAP) Subjective: Sweating,interrupted sleep,restless,headache. Objective: 12/14/16 10:45 Vital Signs - 8 hr 12/14/16 12/14/16 12/14/16 03:30 06:49 10:00 Temperature 97.3 F L 97.7 F Pulse Rate 61 81 Respiratory 18 18 20 Rate Blood Pressure 100/62 105/66 Laboratory Tests 12/10/16 12/10/16 12/10/16 07:00 07:00 07:00 WBC 7.7 RBC 4.49 Hgb 13.2 Hct 39.4 MCV 87.7 MCHC 33.6 RDW 14.8 Plt Count 233 MPV 10.0 Sodium 141 Potassium 3.8 Chloride 105 Carbon Dioxide 28 Anion Gap 8 BUN 20 H D Creatinine 0.7 Creat Clearance w eGFR > 60 Random Glucose 96 D Calcium 9.0 Total Bilirubin 0.9 D AST 48 H ALT 102 H Alkaline Phosphatase 76 Total Protein 7.1 Albumin 3.9 Urine Color Urine Appearance Urine pH Ur Specific [place] Urine Protein Urine Glucose (UA) Urine Ketones Urine Blood Urine Nitrite Urine Bilirubin Urine Urobilinogen Ur Leukocyte Esterase RPR Titer Hepatitis C Antibody >11.0 H 12/10/16 12/11/16 07:00 13:00 WBC RBC Hgb Hct MCV MCHC RDW Plt Count MPV Sodium Potassium Chloride Carbon Dioxide Anion Gap BUN Creatinine Creat Clearance w eGFR Random Glucose Calcium Total Bilirubin AST ALT Alkaline Phosphatase Total Protein Albumin Urine Color Yellow Urine Appearance Clear Urine pH 5.0 Ur Specific [place] 1.020 Urine Protein Negative Urine Glucose (UA) Negative Urine Ketones Negative Urine Blood Negative Urine Nitrite Negative Urine Bilirubin Negative Urine Urobilinogen Negative Ur Leukocyte Esterase Negative RPR Titer Nonreactive Hepatitis C Antibody labs noted Assessment: 12/14/16 10:46 withdrawal sx. Plan: Continue detox
[2016-12-14] MEDS: hydrOXYzine PAMOATE 50 MG CAPSULE (FP) PO PRN (18:18)
[2016-12-14] MEDS: THIAMINE HCL 100 MG TABLET (FP) PO SCH (22:29)
[2016-12-14] MEDS ORDERED: ZOLPIDEM TARTRATE 5 MG TABLET PO ONE (22:54)
[2016-12-15] MEDS ORDERED: METHADONE HCL 5 MG TABLET (FOR DETOX USE ONLY) PO ONE (06:00)
[2016-12-15 07:53] VITALS: BP 147/75; PULSE 103; TEMP 97.5
--- NOTE | 2016-12-15 09:21 | DS ---
[facility] Detox Discharge Summary Admission Date: 12/10/16 Discharge Date: 12/15/16 - History Present History: Opioid Dependence - Physical Exam Results Vital Signs: Vital Signs Temperature 97.5 F L 12/15/16 06:00 Pulse Rate 103 H 12/15/16 06:00 Respiratory Rate 18 12/15/16 06:00 Blood Pressure 147/75 12/15/16 06:00 O2 Sat by Pulse Oximetry (%) - Treatment Hospital Course: Detox Protocol Followed, Detoxed Safely, Responded well, Discharged Condition Good - Medication Discharge Medications: Ambulatory Orders Atomoxetine HCl [Strattera -] 50 mg PO DAILY #30 cap 12/10/16 Keppra - 500 mg PO BID 12/10/16 - AMA Did Patient Leave Against Medical Advice: No
[2016-12-16 14:19] LABS: HCV LOG 10 5.521 (.)
== END 2016-12-15 09:05 | disposition home or self-care (01) | DRG 773 ==
LOC: YASAS 01:28 → Y6N 01:32
PROVIDERS: ADMIT Internal Medicine; ATTEND Internal Medicine
PROC: HZ2ZZZZ Detoxification Services for Substance Abuse Treatment (ICD-10-PCS; principal; 2016-12-10)
DX: F11.23 Opioid dependence with withdrawal (principal); F14.20 Cocaine dependence, uncomplicated; F17.210 Nicotine dependence, cigarettes, uncomplicated; F90.9 Attention-deficit hyperactivity disorder, unspecified type; F19.24 Other psychoactive substance dependence with psychoactive substance-induced mood disorder; G40.909 Epilepsy, unspecified, not intractable, without status epilepticus
CPT/HCPCS: 36415; 80053; 81003; 85027; 86593; 86803; 87522; 93005; 93010

== ENCOUNTER 2016-12-16 08:22 | Inpatient (IN) | payer OTHER ==
[2016-12-16 10:21] VITALS: BMI 25.1
[2016-12-16] MEDS ORDERED: MAGNESIUM CITRATE 300 ML BOTTLE PO PRN (11:39)
[2016-12-16] MEDS ORDERED: NICOTINE POLACRILEX 2 MG GUM BUC PRN (11:39)
[2016-12-16] MEDS ORDERED: MENTHOL/PHENOL 1 EACH UD MM PRN (11:39)
[2016-12-16] MEDS ORDERED: P-EPHED 60MG/TRIPROLIDI 2.5MG TABLET PO PRN (11:39)
[2016-12-16] MEDS ORDERED: MAGNESIUM HYDROX 2400MG/30ML ORAL SUSPENSION 30 ML CUP PO PRN (11:39)
[2016-12-16] MEDS ORDERED: LOPERAMIDE HCL 2 MG CAPSULE PO PRN (11:39)
[2016-12-16] MEDS ORDERED: ACETAMINOPHEN 325 MG TABLET (FP) PO PRN (11:39)
[2016-12-16] MEDS ORDERED: guaiFENesin/D-METHORPHAN HB 10 ML UNIT-DOSE CUPS PO PRN (11:39)
[2016-12-16] MEDS ORDERED: MAG HYDROX/AL HYDROX/SIMETH 30 ML UNIT-DOSE CUP PO PRN (11:39)
--- NOTE | 2016-12-16 11:44 | HP ---
[facility] Rehab Assess/Revision - Admission History Admitted to Rehab from: [facility] [place] Date of Admission to Rehab: 12/16/16 - Vital signs Vital Signs: Vital Signs Period Temp Pulse Resp BP Sys/Lara Pulse Ox Last 24 Hr 96.1 F 96 18 149/70 - Findings Detox History & Physical reviewed: Yes Concur with findings: Yes
[2016-12-16] MEDS: NICOTINE 21 MG/24 HOURS TOPICAL PATCH TD SCH (13:18)
[2016-12-16] MEDS: levETIRAcetam 500 MG TABLET (FP) PO SCH ×2 (13:18→21:41)
[2016-12-16] MEDS: THIAMINE HCL 100 MG TABLET (FP) PO SCH (21:40)
[2016-12-16] MEDS: diphenhydrAMINE HCL 50 MG CAPSULE PO PRN (21:41)
[2016-12-17] MEDS: NICOTINE 21 MG/24 HOURS TOPICAL PATCH TD SCH (09:54)
[2016-12-17] MEDS: levETIRAcetam 500 MG TABLET (FP) PO SCH ×2 (09:54→21:05)
[2016-12-17] MEDS: PRENATAL VITAMINS W/ FOLIC ACID TABLET (FP) PO SCH (09:54)
--- NOTE | 2016-12-17 10:13 | HP ---
Psychiatrist Admission - Data Date of interview: 12/17/16 Admission source: [address] [place] [address] detox Identifying data: This is the first admission to [address] [place] [address] for this 26 years old single female mother of 5 yo daughter(child resides with her father).Patient has visitation rights.Patient resides with her father,supported by family. Medical History: Unremarkable Psychiatric History: Patient reports being dx with ADHD at ,placed on Adderall, Ritalin.She is under care of at [facility] psychiatric office.Current meds:Adderall 20 mg po daily and Klonopin as needed.Adderall has been replaced to Stratterra by while in detox unit on [address] [place] [address] this week .Patient also reports anxiety on and off,stating that she was on Klonopin,Valium as needed.No history of psychiatric hospitalizations.No suicidal attempts in the past. Physical/Sexual Abuse/Trauma History: denies Vital Signs: Vital Signs - 24 hr 12/16/16 12/16/16 12/17/16 10:17 13:53 00:30 Temperature 96.1 F L 97.9 F Pulse Rate 96 H 90 Respiratory 18 16 18 Rate Blood Pressure 149/70 106/75 12/17/16 12/17/16 03:30 06:59 Temperature 97.7 F Pulse Rate 81 Respiratory 18 18 Rate Blood Pressure 115/72 Allergies/Adverse Reactions: Allergies Allergy/AdvReac Type Severity Reaction Status Date / Time No Known Allergies Allergy Verified 12/16/16 10:41 Date of last physical exam: 12/16/16 Concur with the findings of this exam: Yes - Substance Abuse/Tx History Hx Alcohol Use: Yes (reorts drinking since 18 yo,beer on and off,heavily at time ) Hx Substance Use: Yes (heroin IV since 21 yo,cocaine since 23 yo) Substance Use Type: Alcohol, Cocaine, Heroin Hx Substance Use Treatment: Yes (completed alf [facility] last year) - Admission Criteria Previous failed treatment: Yes Poor recovery environment: Yes Comorbidities: Yes Lacks judgement: Yes Mental Status Exam - Mental Status Exam Alert and Oriented to: Time, Place, Person Cognitive Function: Grossly Intact Patient Appearance: Well Groomed Mood: Euthymic Affect: Mood Congruent Patient Behavior: Cooperative Speech Pattern: Clear Voice Loudness: Normal Thought Process: Intact, Goal Oriented Thought Disorder: Not Present Hallucinations: Denies Suicidal Ideation: Denies Homicidal Ideation: Denies Insight/Judgement: Fair Sleep: Fair Appetite: Good Muscle strength/Tone: Normal Gait/Station: Normal Psychiatric Findings - Problem List ([place] 1, 2,3) (1) ADHD (attention deficit hyperactivity disorder) Current Visit: Yes Status: Chronic (2) Chronic low back pain Current Visit: Yes Status: Chronic (3) Cocaine dependence, uncomplicated Current Visit: Yes Status: Chronic (4) Lumbar herniated disc Current Visit: Yes Status: Chronic (5) Nicotine dependence Current Visit: Yes Status: Chronic (6) Drug-induced mood disorder Current Visit: Yes Status: Chronic (7) Opioid dependence Current Visit: Yes Status: Chronic (8) Opioid dependence in controlled environment Current Visit: Yes Status: Chronic - Initial Treatment Plan Initial Treatment Plan: Continue Stratterra 50 mg po daily.Vistaril 50 mg po qid PRN. Will monitor porgress.
--- NOTE | 2016-12-17 11:05 | EKG ---
Test Reason : Blood Pressure : / mmHG Vent. Rate : 066 BPM Atrial Rate : 066 BPM P-R Int : 156 ms QRS Dur : 084 ms QT Int : 428 ms P-R-T Axes : 057 046 055 degrees QTc Int : 448 ms NORMAL SINUS RHYTHM NORMAL ECG WHEN COMPARED WITH ECG OF 10-DEC-2016 01:22, NO SIGNIFICANT CHANGE WAS FOUND Confirmed by KOKO GAVIN MD ([id number]) on 12/17/2016 11:04:55 AM Referred By: Hope Alejandra Confirmed By:KOKO GAVIN MD
[2016-12-17] MEDS: ATOMOXETINE HCL 25 MG CAPSULE PO SCH (11:42)
[2016-12-17] MEDS ORDERED: PT OWN MED DRAWER 7, Y5N ONE (21:05)
[2016-12-17] MEDS: IBUPROFEN 400 MG TABLET (FP) PO PRN (21:05)
[2016-12-17] MEDS: THIAMINE HCL 100 MG TABLET (FP) PO SCH (21:05)
[2016-12-17] MEDS: diphenhydrAMINE HCL 50 MG CAPSULE PO PRN (21:05)
[2016-12-18] MEDS: PRENATAL VITAMINS W/ FOLIC ACID TABLET (FP) PO SCH (09:40)
[2016-12-18] MEDS: NICOTINE 21 MG/24 HOURS TOPICAL PATCH TD SCH (09:40)
[2016-12-18] MEDS: levETIRAcetam 500 MG TABLET (FP) PO SCH ×2 (09:41→21:05)
[2016-12-18] MEDS: ATOMOXETINE HCL 25 MG CAPSULE PO SCH (09:43)
[2016-12-18] MEDS: diphenhydrAMINE HCL 50 MG CAPSULE PO PRN (21:05)
[2016-12-18] MEDS: THIAMINE HCL 100 MG TABLET (FP) PO SCH (21:05)
[2016-12-18] MEDS ORDERED: PT OWN MED DRAWER 7, Y5N ONE (22:32)
[2016-12-19] MEDS ORDERED: PT OWN MED DRAWER 7, Y5N ONE (09:32)
[2016-12-19] MEDS: levETIRAcetam 500 MG TABLET (FP) PO SCH ×2 (09:42→21:18)
[2016-12-19] MEDS: NICOTINE 21 MG/24 HOURS TOPICAL PATCH TD SCH (09:43)
[2016-12-19] MEDS: ATOMOXETINE HCL 25 MG CAPSULE PO SCH (09:43)
[2016-12-19] MEDS: PRENATAL VITAMINS W/ FOLIC ACID TABLET (FP) PO SCH (09:44)
[2016-12-19] MEDS: diphenhydrAMINE HCL 50 MG CAPSULE PO PRN (21:17)
[2016-12-19] MEDS: THIAMINE HCL 100 MG TABLET (FP) PO SCH (21:18)
--- NOTE | 2016-12-19 23:14 | PN ---
[facility] Progress Note Note: Pt's keppra serum levels are below therapeutic levels. Pt. stated she has not been taking her Keppra for the last month. She is currently y prescribed Keppra 500mg PO BID. Levels to be re-checked on 12/22/16.
[2016-12-20] MEDS: hydrOXYzine PAMOATE 50 MG CAPSULE (FP) PO PRN (04:47)
[2016-12-20] MEDS ORDERED: PT OWN MED DRAWER 7, Y5N ONE (09:04)
[2016-12-20] MEDS: levETIRAcetam 500 MG TABLET (FP) PO SCH ×2 (09:31→21:11)
[2016-12-20] MEDS: ATOMOXETINE HCL 25 MG CAPSULE PO SCH (09:31)
[2016-12-20] MEDS: NICOTINE 21 MG/24 HOURS TOPICAL PATCH TD SCH (09:32)
[2016-12-20] MEDS: PRENATAL VITAMINS W/ FOLIC ACID TABLET (FP) PO SCH (09:33)
[2016-12-20] MEDS: diphenhydrAMINE HCL 50 MG CAPSULE PO PRN (21:11)
[2016-12-20] MEDS: THIAMINE HCL 100 MG TABLET (FP) PO SCH (21:12)
[2016-12-21 07:05] VITALS: BP 121/82; PULSE 69; TEMP 98.2
[2016-12-21] MEDS ORDERED: PT OWN MED DRAWER 7, Y5N ONE (08:52)
[2016-12-21] MEDS: hydrOXYzine PAMOATE 50 MG CAPSULE (FP) PO PRN (09:32)
[2016-12-21] MEDS: NICOTINE 21 MG/24 HOURS TOPICAL PATCH TD SCH (09:32)
[2016-12-21] MEDS: PRENATAL VITAMINS W/ FOLIC ACID TABLET (FP) PO SCH (09:32)
[2016-12-21] MEDS: ATOMOXETINE HCL 25 MG CAPSULE PO SCH (09:32)
[2016-12-21] MEDS: levETIRAcetam 500 MG TABLET (FP) PO SCH ×2 (09:32→21:08)
[2016-12-21] MEDS: diphenhydrAMINE HCL 50 MG CAPSULE PO PRN (21:08)
[2016-12-21] MEDS: IBUPROFEN 400 MG TABLET (FP) PO PRN (21:09)
[2016-12-21] MEDS: THIAMINE HCL 100 MG TABLET (FP) PO SCH (21:10)
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
== END 2016-12-22 06:25 | disposition home or self-care (01) | DRG 772 ==
LOC: YASAS 08:22 → Y3E 10:45
PROVIDERS: ADMIT Psychiatry & Neurology Psychiatry; ATTEND Psychiatry & Neurology Psychiatry
PROC: HZ42ZZZ Group Counseling for Substance Abuse Treatment, Cognitive-Behavioral (ICD-10-PCS; principal; 2016-12-16)
DX: F11.20 Opioid dependence, uncomplicated (principal); F14.20 Cocaine dependence, uncomplicated; F17.210 Nicotine dependence, cigarettes, uncomplicated; F91.8 Other conduct disorders; F90.9 Attention-deficit hyperactivity disorder, unspecified type; F19.24 Other psychoactive substance dependence with psychoactive substance-induced mood disorder; M54.5 Low back pain; G89.29 Other chronic pain; M51.26 Other intervertebral disc displacement, lumbar region
CPT/HCPCS: 36415; 93005; 93010

== ENCOUNTER 2018-02-17 11:14 | Inpatient (IN) | payer OTHER ==
[2018-02-17 12:29] VITALS: BMI 25.1
--- NOTE | 2018-02-17 14:48 | HP ---
COWS - Scale Resting Pulse: 1= NM 81-100 Sweatin=Flushed/Facial Moisture Restless Observation: 3= Extraneous Movement Pupil Size: 2= Moderately Dilated Bone or Joint Aches: 2= Severe Diffuse Aches Runny Nose/ Eye Tearin= Runny Nose/Eyes GI Upset > 30mins: 3= Vomiting/Diarrhea Tremor Observation: 2= Slight Tremor Visible Yawning Observation: 1= 1-2x During Session Anxiety or Irritability: 2=Irritable/Anxious Goose Flesh Skin: 0=Smooth Skin COWS Score: 20 Admission ROS BHS - HPI Chief Complaint: i need help to stop using heroin Allergies/Adverse Reactions: Allergies Allergy/AdvReac Type Severity Reaction Status Date / Time No Known Allergies Allergy Verified 02/17/18 14:33 History of Present Illness: this 27 years old female with heroin and cocaine dependence seeking detox, withdrawal symptom,last 11/13 seizure last 2016 nicotine dependence multiple admissions to detox,last 11/13 keep relapsing anxiety,depression,insomnia Exam Limitations: No Limitations - Ebola screening Have you traveled outside of the country in the last 21 days: No Have you been sick,other than usual withdrawal symptoms: No - Review of Systems Constitutional: Chills, Loss of Appetite, Malaise, Night Sweats, Changes in sleep, Weakness, Unintentional Wgt. Loss EENT: reports: Tearing, Nose Congestion Respiratory: reports: No Symptoms reported Cardiac: reports: Palpitations GI: reports: Nausea, Vomiting, Abdominal cramping : reports: No Symptoms Reported Musculoskeletal: reports: Back Pain, Joint Pain, Muscle Pain Integumentary: reports: Dryness Neuro: reports: Headache, Tremors Endocrine: reports: No Symptoms Reported Hematology: reports: No Symptoms Reported Psychiatric: reports: Judgement Intact, Mood/Affect Appropiate, Orientated x3 Patient History - Patient Medical History Hx Anemia: No Hx Asthma: No Hx Chronic Obstructive Pulmonary Disease (COPD): No Hx Cancer: No Hx Cardiac Disorders: No Hx Congestive Heart Failure: No Hx Hypertension: No Hx Hypercholesterolemia: No Hx Pacemaker: No HX Cerebrovascular Accident: No Hx Seizures: Yes (last 2016) Hx Dementia: No Hx Diabetes: No Hx Gastrointestinal Disorders: No Hx Liver Disease: No Hx Genitourinary Disorders: No Hx Sexually Transmitted Disorders: No Hx Renal Disease (ESRD): No Hx Thyroid Disease: No Hx Human Immunodeficiency Virus (HIV): No (last 11/13) Hx Hepatitis C: No Hx Depression: No Hx Suicide Attempt: No Hx Bipolar Disorder: No Hx Schizophrenia: No Other Medical History: no suicidal,no homicidal - Patient Surgical History Past Surgical History: Yes Hx Neurologic Surgery: No Hx Cataract Extraction: No Hx Cardiac Surgery: No Hx Lung Surgery: No Hx Breast Surgery: No Hx Breast Biopsy: No Hx Abdominal Surgery: No Hx Appendectomy: No Hx Cholecystectomy: No Hx Genitourinary Surgery: No Hx Section: Yes Hx Orthopedic Surgery: No Other Surgical History: IUD 2 years ago, [facility] 10/2015 Anesthesia Reaction: No - PPD History Previous Implant?: Yes Documented Results: Negative w/o proof Date: 03/05/17 Results: 0mm PPD to be Administered?: Yes - Reproductive History Patient is a Female of Child Bearing Age (11 -55 yrs old): Yes Last Menstrual Period: 11/18/16 Patient : No - Smoking Cessation Smoking history: Current every day smoker Have you smoked in the past 12 months: Yes Aproximately how many cigarettes per day: 20 Cigars Per Day: 0 Hx Chewing Tobacco Use: No Initiated information on smoking cessation: Yes 'Breaking Loose' booklet given: 02/17/18 - Substance & Tx. History Hx Alcohol Use: No Hx Substance Use: Yes Substance Use Type: Cocaine, Heroin Hx Substance Use Treatment: Yes (last 11/13) - Substances Abused Heroin Route: Injection Frequency: Daily Amount used: 5-8 BAGS Age of first use: 21 Date of Last Use: 02/17/18 Cocaine Route: Injection Frequency: 1-3 times last 30 days Amount used: 1 BAG Age of first use: 19 Date of Last Use: 02/14/18 Family Disease History - Family Disease History Family Disease History: Other: Grandparent (GF-HTN), Father (HTN), Mother (HTN/ ALCOHOLISM) Admission Physical Exam BHS - Vital Signs Vital Signs: Vital Signs - 24 hr 02/17/18 12:25 Temperature 97 F L Pulse Rate 99 H Respiratory 19 Rate Blood Pressure 132/95 - Physical General Appearance: Yes: Moderate Distress, Tremorous, Irritable, Sweating, Anxious HEENTM: Yes: Normocephalic, AURA, Pharynx Normal Respiratory: Yes: Lungs Clear, Normal Breath Sounds, No Respiratory Distress Neck: Yes: Within Normal Limits Breast: Yes: Breast Exam Deferred Cardiology: Yes: Within Normal Limits, Regular Rhythm, Regular Rate, S1, S2 Abdominal: Yes: Normal Bowel Sounds, Non Tender, Soft Genitourinary: Yes: Within Normal Limits Back: Yes: Muscle Spasm Musculoskeletal: Yes: Within Normal Limits, full range of Motion, Back pain Extremities: Yes: Tremors Neurological: Yes: Within Normal Limits, 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 intact, Fully Oriented, Alert, Motor Strength 5/5 Integumentary: Yes: Dry Lymphatic: Yes: Within Normal Limits - Diagnostic (1) Opioid dependence with withdrawal Current Visit: No Status: Chronic (2) Cocaine dependence, uncomplicated Current Visit: No Status: Chronic (3) Lumbar herniated disc Current Visit: No Status: Chronic (4) Nicotine dependence Current Visit: No Status: Chronic (5) Seizure Current Visit: No Status: Chronic Comment: h/o of seizure last a week ago Cleared for Admission [facility] - Detox or Rehab [facility] Level of Care: Medically Managed Detox Regimen/Protocol: Methadone [facility] Breath Alcohol Content Breath Alcohol Content: 0 Urine Pregancy Test - Result Urine Test Results: Negative- NO Line Present Urine Drug Screen - Results Drug Screen Negative: No Urine Drug Screen Results: EMA-Cocaine, OPI-Opiates, OXY-Oxycodone
[2018-02-17] MEDS ORDERED: MAG HYDROX/AL HYDROX/SIMETH 30 ML UNIT-DOSE CUP PO PRN (14:56)
[2018-02-17] MEDS ORDERED: NICOTINE POLACRILEX 2 MG GUM BUC PRN (14:56)
[2018-02-17] MEDS ORDERED: P-EPHED 60MG/TRIPROLIDI 2.5MG TABLET PO PRN (14:56)
[2018-02-17] MEDS ORDERED: ACETAMINOPHEN 325 MG TABLET (FP) PO PRN (14:56)
[2018-02-17] MEDS ORDERED: LOPERAMIDE HCL 2 MG CAPSULE PO PRN (14:56)
[2018-02-17] MEDS ORDERED: MAGNESIUM HYDROX 2400MG/30ML ORAL SUSPENSION 30 ML CUP PO PRN (14:56)
[2018-02-17] MEDS ORDERED: MAGNESIUM CITRATE 300 ML BOTTLE PO PRN (14:56)
[2018-02-17] MEDS ORDERED: guaiFENesin/D-METHORPHAN HB 10 ML UNIT-DOSE CUPS PO PRN (14:56)
[2018-02-17] MEDS ORDERED: MENTHOL/PHENOL 1 EACH UD MM PRN (14:56)
[2018-02-17] MEDS ORDERED: METHADONE HCL 10 MG TABLET (FOR DETOX USE ONLY) PO ONE ×2 (15:30→23:00)
[2018-02-17] MEDS: CYCLOBENZAPRINE HCL 10 MG TABLET (FP) PO PRN (17:40)
[2018-02-17] MEDS: diazePAM 5 MG TABLET PO PRN ×2 (17:40→22:25)
[2018-02-17] MEDS: NICOTINE 21 MG/24 HOURS TOPICAL PATCH TD SCH (17:43)
[2018-02-17] MEDS: THIAMINE HCL 100 MG TABLET (FP) PO SCH (22:25)
[2018-02-17] MEDS: cloNIDine HCL 0.1 MG TABLET PO SCH (22:26)
[2018-02-17] MEDS: MELATONIN 5 MG TABLETS PO PRN (22:27)
[2018-02-17] MEDS: IBUPROFEN 400 MG TABLET (FP) PO PRN (22:50)
[2018-02-17 23:24] LABS: URINE APPEARANCE TURBID; URINE BILIRUBIN NEGATIVE (<2.0 mg/dL); URINE COLOR YELLOW; URINE GLUCOSE (UA) NEGATIVE (NEGATIVE); URINE KETONE NEGATIVE (NEGATIVE); URINE LEUK ESTERASE NEGATIVE (NEGATIVE); URINE NITRITE NEGATIVE (NEGATIVE); URINE UROBILINOGEN 4.0 E.U/dl mg/dL (0.2-1.0)
[2018-02-17 23:30] LABS: URINE PROTEIN 1+ (NEGATIVE)
[2018-02-17 23:35] LABS: EPI CELLS MODERATE /HPF (FEW); URINE MUCUS MANY
--- NOTE | 2018-02-18 07:32 | CONSULT ---
[facility] Psychiatric Consult - Data Date of interview: 02/18/18 Admission source: [facility] Identifying data: This is a 27 years old female, single mother of one, living with family, unemployed, with no income, with heroin and cocaine dependence seeking detox, reporting withdrawal symptoms,. Denies psychiatric hospitalization history, suicidal and homicidal ideations. Substance Abuse History: Smoking history: Current every day smoker. Have you smoked in the past 12 months: Yes. Aproximately how many cigarettes per day: 20. Cigars Per Day: 0. Hx Chewing Tobacco Use: No. Initiated information on smoking cessation: Yes. 'Breaking Loose' booklet given: 02/17/18. - Substance & Tx. History. Hx Alcohol Use: No. Hx Substance Use: Yes. Substance Use Type : Cocaine, Heroin. Hx Substance Use Treatment: Yes (last 11/13). - Substances Abused. Heroin. Route: Injection. Frequency: Daily. Amount used: 5-8 BAGS. Age of first use: 21. Date of Last Use: 02/17/18. Cocaine. Route: Injection. Frequency: 1-3 times last 30 days. Amount used: 1 BAG. Age of first use: 19. Date of Last Use: 02/14/18 Medical History: Denies significant medical issues Psychiatric History: Patient reports history of depression anjd insomnia, reports Seroquel and Trazodone are nit helpful for insomnia in the past, asking for Ambiuen 5mg po prn qhs.Denies suicidal and homicidal history. Physical/Sexual Abuse/Trauma History: Denies Additional Comment: Ambien 5mg po qhs prn for insomnia Mental Status Exam - Mental Status Exam Alert and Oriented to: Person Cognitive Function: Fair Patient Appearance: Unkempt Mood: Apprehensive Affect: Mood Congruent Patient Behavior: Cooperative Speech Pattern: Appropriate Voice Loudness: Mildly Soft/Quiet Thought Process: Goal Oriented Thought Disorder: Being Controlled Hallucinations: Denies Suicidal Ideation: Denies Homicidal Ideation: Denies Insight/Judgement: Fair Sleep: Difficulty falling asleep Appetite: Fair Muscle strength/Tone: Normal Gait/Station: Normal Additional Comments: Ambien 5mg po qhs prn for insomnia Psychiatric Findings - Problem List ([place] 1, 2,3) (1) ADHD (attention deficit hyperactivity disorder) Current Visit: No Status: Chronic (2) Anxiety disorder Current Visit: No Status: Chronic (3) Cocaine dependence, uncomplicated Current Visit: No Status: Chronic (4) Drug-induced mood disorder Current Visit: No Status: Chronic (5) Lumbar herniated disc Current Visit: No Status: Chronic (6) Nicotine dependence Current Visit: No Status: Chronic (7) Opioid dependence Current Visit: No Status: Chronic (8) Seizure Current Visit: No Status: Chronic Comment: h/o of seizure last a week ago - Initial Treatment Plan Initial Treatment Plan: Ambien 5mg po qhs prn for insomnia
[2018-02-18] MEDS ORDERED: ZOLPIDEM TARTRATE 5 MG TABLET PO PRN (08:08)
--- NOTE | 2018-02-18 09:24 | PN ---
BHS COWS - Scale Resting Pulse: 0= DC 80 or Below Sweatin= Chills/Flushing Restless Observation: 3= Extraneous Movement Pupil Size: 1= Pupils >than Normal Bone or Joint Aches: 2= Severe Diffuse Aches Runny Nose/ Eye Tearin= Runny Nose/Eyes GI Upset > 30mins: 2= Nausea/Diarrhea Tremor Observation of Outstretched Hands: 2= Slight Tremor Visible Yawning Observation: 1= 1-2x During Session Anxiety or Irritability: 2=Irritable/Anxious Goose Flesh Skin: 0=Smooth Skin COWS Score: 16 S Progress Note (SOAP) Subjective: alert,irritable,anxious,interrupted sleep,pain in body,back,tremor Objective: 02/18/18 09:21 Vital Signs Temperature 97.3 F L 02/18/18 06:34 Pulse Rate 67 02/18/18 06:34 Respiratory Rate 18 02/18/18 06:34 Blood Pressure 101/64 02/18/18 06:34 O2 Sat by Pulse Oximetry (%) 02/18/18 09:22 ekg nsr,normal ecg qt/qtc 398/420 Laboratory Last Values Urine Color Yellow 02/17/18 21:54 Urine Appearance Turbid 02/17/18 21:54 Urine pH 6.0 (5.0-8.0) 02/17/18 21:54 Ur Specific [place] 1.030 (1.001-1.035) 02/17/18 21:54 Urine Protein 1+ (NEGATIVE) H 02/17/18 21:54 Urine Glucose (UA) Negative (NEGATIVE) 02/17/18 21:54 Urine Ketones Negative (NEGATIVE) 02/17/18 21:54 Urine Blood Negative (NEGATIVE) 02/17/18 21:54 Urine Nitrite Negative (NEGATIVE) 02/17/18 21:54 Urine Bilirubin Negative (<2.0 mg/dL) 02/17/18 21:54 Urine Urobilinogen 4.0 e.u/dl mg/dL (0.2-1.0) H 02/17/18 21:54 Ur Leukocyte Esterase Negative (NEGATIVE) 02/17/18 21:54 Urine WBC (Auto) None /hpf (3-5) 02/17/18 21:54 Urine RBC (Auto) 2 /hpf (0-3) 02/17/18 21:54 Ur Epithelial Cells Moderate /HPF (FEW) 02/17/18 21:54 Urine Mucus Many 02/17/18 21:54 labs pending Assessment: 02/18/18 09:23 withdrawal symptom Plan: continue detox
[2018-02-18] MEDS ORDERED: METHADONE HCL 10 MG TABLET (FOR DETOX USE ONLY) PO ONE (10:00)
[2018-02-18 10:28] LABS: HEMATOCRIT 39.7 % (32.4-45.2); HEMOGLOBIN 13.3 GM/dL (10.7-15.3); MCH 30.9 pg (25.7-33.7); MCHC 33.5 g/dl (32.0-36.0); MEAN CELL VOLUME 92.2 fl (80-96); MEAN PLT VOLUME 10.3 fl (7.5-11.1); PLATELET COUNT 194 K/MM3 (134-434); RDW 13.4 % (11.6-15.6); WHITE BLOOD COUNT 4.5 K/mm3 (4.0-10.0)
[2018-02-18 10:32] LABS: ALBUMIN 3.4 g/dl (3.4-5.0); ANION GAP 5 MMOL/L (8-16); BLOOD UREA NITROGEN 17 mg/dL (7-18); CALCIUM 8.5 mg/dL (8.5-10.1); CHLORIDE 107 mmol/L (98-107); CO2 31 mmol/L (21-32); GLUCOSE,RANDOM 82 mg/dL (74-106); POTASSIUM 4.2 mmol/L (3.5-5.1); SODIUM 143 mmol/L (136-145)
[2018-02-18 10:37] LABS: ALK PHOS 72 U/L (45-117); BILIRUBIN,TOTAL 0.3 mg/dL (0.2-1.0); CREATININE 0.8 mg/dL (0.55-1.02); SGOT/AST 32 U/L (15-37); SGPT/ALT 45 U/L (12-78); TOT PROT 6.7 g/dl (6.4-8.2)
[2018-02-18] MEDS: PRENATAL VITAMINS W/ FOLIC ACID TABLET (FP) PO SCH (10:38)
[2018-02-18] MEDS: cloNIDine HCL 0.1 MG TABLET PO SCH ×2 (10:38→22:19)
[2018-02-18] MEDS: NICOTINE 21 MG/24 HOURS TOPICAL PATCH TD SCH (10:39)
[2018-02-18] MEDS: diazePAM 5 MG TABLET PO PRN ×3 (10:39→22:19)
[2018-02-18] MEDS: CYCLOBENZAPRINE HCL 10 MG TABLET (FP) PO PRN ×2 (12:43→22:20)
--- NOTE | 2018-02-18 16:07 | EKG ---
Test Reason : Blood Pressure : / mmHG Vent. Rate : 067 BPM Atrial Rate : 067 BPM P-R Int : 140 ms QRS Dur : 080 ms QT Int : 398 ms P-R-T Axes : 073 010 035 degrees QTc Int : 420 ms NORMAL SINUS RHYTHM NORMAL ECG WHEN COMPARED WITH ECG OF 16-DEC-2016 16:37, NO SIGNIFICANT CHANGE WAS FOUND Confirmed by Jodi Ta ([id number]) on 02/18/2018 4:06:48 PM Referred By: Monica Goss Confirmed By:Jodi Ta
[2018-02-18] MEDS: ZOLPIDEM TARTRATE 5 MG TABLET PO PRN (22:19)
[2018-02-18] MEDS: THIAMINE HCL 100 MG TABLET (FP) PO SCH (22:19)
[2018-02-19] MEDS: diazePAM 5 MG TABLET PO PRN ×4 (05:57→22:25)
[2018-02-19] MEDS ORDERED: METHADONE HCL 5 MG TABLET (FOR DETOX USE ONLY) PO ONE (10:00)
--- NOTE | 2018-02-19 10:14 | PN ---
BHS COWS - Scale Resting Pulse: 0= [place] 80 or Below Sweatin= Chills/Flushing Restless Observation: 3= Extraneous Movement Pupil Size: 1= Pupils >than Normal Bone or Joint Aches: 2= Severe Diffuse Aches Runny Nose/ Eye Tearin= Runny Nose/Eyes GI Upset > 30mins: 2= Nausea/Diarrhea Tremor Observation of Outstretched Hands: 2= Slight Tremor Visible Yawning Observation: 1= 1-2x During Session Anxiety or Irritability: 2=Irritable/Anxious Goose Flesh Skin: 0=Smooth Skin COWS Score: 16 S Progress Note (SOAP) Subjective: alert,irritable,anxious,interrupted sleep,tremor,pain in the body and back Objective: 02/19/18 10:12 Vital Signs Temperature 97.5 F L 02/19/18 07:06 Pulse Rate 71 02/19/18 07:06 Respiratory Rate 18 02/19/18 07:06 Blood Pressure 106/68 02/19/18 07:06 O2 Sat by Pulse Oximetry (%) Laboratory Last Values WBC 4.5 K/mm3 (4.0-10.0) 02/18/18 07:00 RBC 4.30 M/mm3 (3.60-5.2) 02/18/18 07:00 Hgb 13.3 GM/dL (10.7-15.3) 02/18/18 07:00 Hct 39.7 % (32.4-45.2) 02/18/18 07:00 MCV 92.2 fl (80-96) 02/18/18 07:00 MCH 30.9 pg (25.7-33.7) 02/18/18 07:00 MCHC 33.5 g/dl (32.0-36.0) 02/18/18 07:00 RDW 13.4 % (11.6-15.6) 02/18/18 07:00 Plt Count 194 K/MM3 (134-434) 02/18/18 07:00 MPV 10.3 fl (7.5-11.1) 02/18/18 07:00 Sodium 143 mmol/L (136-145) 02/18/18 07:00 Potassium 4.2 mmol/L (3.5-5.1) 02/18/18 07:00 Chloride 107 mmol/L (98-107) 02/18/18 07:00 Carbon Dioxide 31 mmol/L (21-32) 02/18/18 07:00 Anion Gap 5 MMOL/L (8-16) L 02/18/18 07:00 BUN 17 mg/dL (7-18) 02/18/18 07:00 Creatinine 0.8 mg/dL (0.55-1.02) 02/18/18 07:00 Creat Clearance w eGFR > 60 (>60) 02/18/18 07:00 Random Glucose 82 mg/dL (74-106) 02/18/18 07:00 Calcium 8.5 mg/dL (8.5-10.1) 02/18/18 07:00 Total Bilirubin 0.3 mg/dL (0.2-1.0) 02/18/18 07:00 AST 32 U/L (15-37) 02/18/18 07:00 ALT 45 U/L (12-78) 02/18/18 07:00 Alkaline Phosphatase 72 U/L (45-117) 02/18/18 07:00 Total Protein 6.7 g/dl (6.4-8.2) 02/18/18 07:00 Albumin 3.4 g/dl (3.4-5.0) 02/18/18 07:00 Urine Color Yellow 02/17/18 21:54 Urine Appearance Turbid 02/17/18 21:54 Urine pH 6.0 (5.0-8.0) 02/17/18 21:54 Ur Specific [place] 1.030 (1.001-1.035) 02/17/18 21:54 Urine Protein 1+ (NEGATIVE) H 02/17/18 21:54 Urine Glucose (UA) Negative (NEGATIVE) 02/17/18 21:54 Urine Ketones Negative (NEGATIVE) 02/17/18 21:54 Urine Blood Negative (NEGATIVE) 02/17/18 21:54 Urine Nitrite Negative (NEGATIVE) 02/17/18 21:54 Urine Bilirubin Negative (<2.0 mg/dL) 02/17/18 21:54 Urine Urobilinogen 4.0 e.u/dl mg/dL (0.2-1.0) H 02/17/18 21:54 Ur Leukocyte Esterase Negative (NEGATIVE) 02/17/18 21:54 Urine WBC (Auto) None /hpf (3-5) 02/17/18 21:54 Urine RBC (Auto) 2 /hpf (0-3) 02/17/18 21:54 Ur Epithelial Cells Moderate /HPF (FEW) 02/17/18 21:54 Urine Mucus Many 02/17/18 21:54 RPR Titer Nonreactive (NONREACTIVE) 02/18/18 07:00 Assessment: 02/19/18 10:13 withdrawal symptom Plan: continue detox
[2018-02-19] MEDS: cloNIDine HCL 0.1 MG TABLET PO SCH ×2 (11:24→22:25)
[2018-02-19] MEDS: NICOTINE 21 MG/24 HOURS TOPICAL PATCH TD SCH (11:24)
[2018-02-19] MEDS: PRENATAL VITAMINS W/ FOLIC ACID TABLET (FP) PO SCH (11:25)
[2018-02-19] MEDS: CYCLOBENZAPRINE HCL 10 MG TABLET (FP) PO PRN ×2 (14:09→22:25)
[2018-02-19] MEDS: IBUPROFEN 400 MG TABLET (FP) PO PRN (14:10)
[2018-02-19] MEDS: THIAMINE HCL 100 MG TABLET (FP) PO SCH (22:28)
[2018-02-19] MEDS: ZOLPIDEM TARTRATE 5 MG TABLET PO PRN (22:29)
[2018-02-20] MEDS: IBUPROFEN 400 MG TABLET (FP) PO PRN ×2 (09:10→19:24)
[2018-02-20] MEDS ORDERED: METHADONE HCL 5 MG TABLET (FOR DETOX USE ONLY) PO ONE (10:00)
[2018-02-20] MEDS: cloNIDine HCL 0.1 MG TABLET PO SCH ×2 (11:04→22:19)
[2018-02-20] MEDS: PRENATAL VITAMINS W/ FOLIC ACID TABLET (FP) PO SCH (11:05)
[2018-02-20] MEDS: diazePAM 5 MG TABLET PO PRN (11:05)
[2018-02-20] MEDS: NICOTINE 21 MG/24 HOURS TOPICAL PATCH TD SCH (11:05)
--- NOTE | 2018-02-20 13:51 | PN ---
BHS Progress Note (SOAP) Subjective: Tremors, sweats, nausea and pain Objective: 02/20/18 13:51 Vital Signs - 8 hr 02/20/18 02/20/18 06:00 09:46 Temperature 97.7 F 97.6 F Pulse Rate 63 82 Respiratory 18 18 Rate Blood Pressure 111/74 127/64 Laboratory Last Values WBC 4.5 K/mm3 (4.0-10.0) 02/18/18 07:00 RBC 4.30 M/mm3 (3.60-5.2) 02/18/18 07:00 Hgb 13.3 GM/dL (10.7-15.3) 02/18/18 07:00 Hct 39.7 % (32.4-45.2) 02/18/18 07:00 MCV 92.2 fl (80-96) 02/18/18 07:00 MCH 30.9 pg (25.7-33.7) 02/18/18 07:00 MCHC 33.5 g/dl (32.0-36.0) 02/18/18 07:00 RDW 13.4 % (11.6-15.6) 02/18/18 07:00 Plt Count 194 K/MM3 (134-434) 02/18/18 07:00 MPV 10.3 fl (7.5-11.1) 02/18/18 07:00 Sodium 143 mmol/L (136-145) 02/18/18 07:00 Potassium 4.2 mmol/L (3.5-5.1) 02/18/18 07:00 Chloride 107 mmol/L (98-107) 02/18/18 07:00 Carbon Dioxide 31 mmol/L (21-32) 02/18/18 07:00 Anion Gap 5 MMOL/L (8-16) L 02/18/18 07:00 BUN 17 mg/dL (7-18) 02/18/18 07:00 Creatinine 0.8 mg/dL (0.55-1.02) 02/18/18 07:00 Creat Clearance w eGFR > 60 (>60) 02/18/18 07:00 Random Glucose 82 mg/dL (74-106) 02/18/18 07:00 Calcium 8.5 mg/dL (8.5-10.1) 02/18/18 07:00 Total Bilirubin 0.3 mg/dL (0.2-1.0) 02/18/18 07:00 AST 32 U/L (15-37) 02/18/18 07:00 ALT 45 U/L (12-78) 02/18/18 07:00 Alkaline Phosphatase 72 U/L (45-117) 02/18/18 07:00 Total Protein 6.7 g/dl (6.4-8.2) 02/18/18 07:00 Albumin 3.4 g/dl (3.4-5.0) 02/18/18 07:00 Urine Color Yellow 02/17/18 21:54 Urine Appearance Turbid 02/17/18 21:54 Urine pH 6.0 (5.0-8.0) 02/17/18 21:54 Ur Specific [place] 1.030 (1.001-1.035) 02/17/18 21:54 Urine Protein 1+ (NEGATIVE) H 02/17/18 21:54 Urine Glucose (UA) Negative (NEGATIVE) 02/17/18 21:54 Urine Ketones Negative (NEGATIVE) 02/17/18 21:54 Urine Blood Negative (NEGATIVE) 02/17/18 21:54 Urine Nitrite Negative (NEGATIVE) 02/17/18 21:54 Urine Bilirubin Negative (<2.0 mg/dL) 02/17/18 21:54 Urine Urobilinogen 4.0 e.u/dl mg/dL (0.2-1.0) H 02/17/18 21:54 Ur Leukocyte Esterase Negative (NEGATIVE) 02/17/18 21:54 Urine WBC (Auto) None /hpf (3-5) 02/17/18 21:54 Urine RBC (Auto) 2 /hpf (0-3) 02/17/18 21:54 Ur Epithelial Cells Moderate /HPF (FEW) 02/17/18 21:54 Urine Mucus Many 02/17/18 21:54 RPR Titer Nonreactive (NONREACTIVE) 02/18/18 07:00 Labs noted Assessment: 02/20/18 13:51 Withdrawal sx Plan: Continue detox
[2018-02-20] MEDS: hydrOXYzine PAMOATE 25 MG CAPSULE (FP) PO PRN ×2 (15:18→19:24)
[2018-02-20] MEDS: MELATONIN 5 MG TABLETS PO PRN (22:19)
[2018-02-20] MEDS: CYCLOBENZAPRINE HCL 10 MG TABLET (FP) PO PRN (22:19)
[2018-02-20] MEDS: ZOLPIDEM TARTRATE 5 MG TABLET PO PRN (22:19)
[2018-02-20] MEDS: THIAMINE HCL 100 MG TABLET (FP) PO SCH (22:20)
[2018-02-21] MEDS ORDERED: METHADONE HCL 10 MG TABLET (FOR DETOX USE ONLY) PO ONE (10:00)
[2018-02-21] MEDS: PRENATAL VITAMINS W/ FOLIC ACID TABLET (FP) PO SCH (10:55)
[2018-02-21] MEDS: NICOTINE 21 MG/24 HOURS TOPICAL PATCH TD SCH (10:55)
[2018-02-21] MEDS: cloNIDine HCL 0.1 MG TABLET PO PRN ×2 (10:56→22:02)
[2018-02-21] MEDS: hydrOXYzine PAMOATE 25 MG CAPSULE (FP) PO PRN (10:57)
[2018-02-21] MEDS: cloNIDine HCL 0.1 MG TABLET PO SCH (11:04)
--- NOTE | 2018-02-21 16:13 | PN ---
[facility] Progress Note (SOAP) Subjective: C/o tremors, shakes, sweats, and anxiety. Patient wants to start Vivitrol. Objective: Alert and oriented x 3. Respirations are quiet and unlabored. Gait steady. CBCD WBC 4.5 K/mm3 (4.0-10.0) 02/18/18 07:00 RBC 4.30 M/mm3 (3.60-5.2) 02/18/18 07:00 Hgb 13.3 GM/dL (10.7-15.3) 02/18/18 07:00 Hct 39.7 % (32.4-45.2) 02/18/18 07:00 MCV 92.2 fl (80-96) 02/18/18 07:00 MCHC 33.5 g/dl (32.0-36.0) 02/18/18 07:00 RDW 13.4 % (11.6-15.6) 02/18/18 07:00 Plt Count 194 K/MM3 (134-434) 02/18/18 07:00 MPV 10.3 fl (7.5-11.1) 02/18/18 07:00 CMP Sodium 143 mmol/L (136-145) 02/18/18 07:00 Potassium 4.2 mmol/L (3.5-5.1) 02/18/18 07:00 Chloride 107 mmol/L (98-107) 02/18/18 07:00 Carbon Dioxide 31 mmol/L (21-32) 02/18/18 07:00 Anion Gap 5 MMOL/L (8-16) L 02/18/18 07:00 BUN 17 mg/dL (7-18) 02/18/18 07:00 Creatinine 0.8 mg/dL (0.55-1.02) 02/18/18 07:00 Creat Clearance w eGFR > 60 (>60) 02/18/18 07:00 Random Glucose 82 mg/dL (74-106) 02/18/18 07:00 Calcium 8.5 mg/dL (8.5-10.1) 02/18/18 07:00 Total Bilirubin 0.3 mg/dL (0.2-1.0) 02/18/18 07:00 AST 32 U/L (15-37) 02/18/18 07:00 ALT 45 U/L (12-78) 02/18/18 07:00 Alkaline Phosphatase 72 U/L (45-117) 02/18/18 07:00 Total Protein 6.7 g/dl (6.4-8.2) 02/18/18 07:00 Albumin 3.4 g/dl (3.4-5.0) 02/18/18 07:00 Labs reviewed. Vital Signs 02/21/18 02/21/18 10:00 15:28 Temperature 97.5 F L 97.5 F L Pulse Rate 54 L 73 Respiratory 18 18 Rate Blood Pressure 106/64 103/66 02/21/18 16:09 Assessment: Withdrawal symptoms 02/21/18 16:10 Plan: Continue detox protocol. Discussed Vivitrol use preparation and protocol.
[2018-02-21] MEDS: MELATONIN 5 MG TABLETS PO PRN (22:03)
[2018-02-21] MEDS: CYCLOBENZAPRINE HCL 10 MG TABLET (FP) PO PRN (22:03)
[2018-02-21] MEDS: THIAMINE HCL 100 MG TABLET (FP) PO SCH (22:52)
[2018-02-22] MEDS ORDERED: METHADONE HCL 5 MG TABLET (FOR DETOX USE ONLY) PO ONE (06:00)
--- NOTE | 2018-02-22 08:32 | PN ---
BHS Progress Note (SOAP) Subjective: feels better Objective: 02/22/18 08:30 Vital Signs Temperature 97.9 F 02/22/18 07:49 Pulse Rate 53 L 02/22/18 07:49 Respiratory Rate 18 02/22/18 07:49 Blood Pressure 102/58 02/22/18 07:49 O2 Sat by Pulse Oximetry (%) Laboratory Tests 02/17/18 02/18/18 02/18/18 21:54 07:00 07:00 WBC 4.5 RBC 4.30 Hgb 13.3 Hct 39.7 MCV 92.2 MCH 30.9 MCHC 33.5 RDW 13.4 Plt Count 194 MPV 10.3 Sodium 143 Potassium 4.2 Chloride 107 Carbon Dioxide 31 Anion Gap 5 L BUN 17 Creatinine 0.8 Creat Clearance w eGFR > 60 Random Glucose 82 Calcium 8.5 Total Bilirubin 0.3 AST 32 ALT 45 Alkaline Phosphatase 72 Total Protein 6.7 Albumin 3.4 Urine Color Yellow Urine Appearance Turbid Urine pH 6.0 Ur Specific [place] 1.030 Urine Protein 1+ H Urine Glucose (UA) Negative Urine Ketones Negative Urine Blood Negative Urine Nitrite Negative Urine Bilirubin Negative Urine Urobilinogen 4.0 e.u/dl H Ur Leukocyte Esterase Negative Urine WBC (Auto) None Urine RBC (Auto) 2 Ur Epithelial Cells Moderate Urine Mucus Many RPR Titer 02/18/18 07:00 WBC RBC Hgb Hct MCV MCH MCHC RDW Plt Count MPV Sodium Potassium Chloride Carbon Dioxide Anion Gap BUN Creatinine Creat Clearance w eGFR Random Glucose Calcium Total Bilirubin AST ALT Alkaline Phosphatase Total Protein Albumin Urine Color Urine Appearance Urine pH Ur Specific [place] Urine Protein Urine Glucose (UA) Urine Ketones Urine Blood Urine Nitrite Urine Bilirubin Urine Urobilinogen Ur Leukocyte Esterase Urine WBC (Auto) Urine RBC (Auto) Ur Epithelial Cells Urine Mucus RPR Titer Nonreactive pt aox3 in nad ambulating Assessment: 02/22/18 08:31 withdrawal sx;s Plan: d/c detox d/c today out pt tx program.
--- NOTE | 2018-02-22 08:36 | DS ---
[facility] Detox Discharge Summary Admission Date: 02/17/18 Discharge Date: 02/22/18 - History Present History: Cocaine Dependence, Opioid Dependence - Physical Exam Results Vital Signs: Vital Signs Temperature 97.9 F 02/22/18 07:49 Pulse Rate 53 L 02/22/18 07:49 Respiratory Rate 18 02/22/18 07:49 Blood Pressure 102/58 02/22/18 07:49 O2 Sat by Pulse Oximetry (%) - Treatment Hospital Course: Detox Protocol Followed, Detoxed Safely, Responded well, Discharged Condition Good - Medication Discharge Medications: Ambulatory Orders NK [No Known Home Medication] 02/17/18 - Diagnosis (1) ADHD (attention deficit hyperactivity disorder) Current Visit: Yes Status: Chronic Qualifiers: Attention deficit-hyperactivity disorder type: unspecified Qualified Code(s ): F90.9 - Attention-deficit hyperactivity disorder, unspecified type (2) Anxiety disorder Current Visit: Yes Status: Chronic Qualifiers: Anxiety disorder type: unspecified anxiety disorder Qualified Code(s): F41.9 - Anxiety disorder, unspecified (3) Chronic low back pain Current Visit: Yes Status: Chronic (4) Cocaine dependence, uncomplicated Current Visit: Yes Status: Chronic (5) Nicotine dependence Current Visit: Yes Status: Chronic (6) Opioid dependence with withdrawal Current Visit: Yes Status: Chronic - AMA Did Patient Leave Against Medical Advice: No
[2018-02-22] MEDS: NICOTINE 21 MG/24 HOURS TOPICAL PATCH TD SCH (09:20)
[2018-02-22] MEDS: PRENATAL VITAMINS W/ FOLIC ACID TABLET (FP) PO SCH (09:21)
[2018-02-22] MEDS: cloNIDine HCL 0.1 MG TABLET PO PRN (09:22)
[2018-02-22 09:34] VITALS: BP 102/68; PULSE 90; TEMP 97.7
== END 2018-02-22 09:30 | disposition home or self-care (01) | DRG 773 ==
LOC: YASAS 11:14 → Y6N 15:08
PROVIDERS: ADMIT Surgery; ATTEND Surgery
PROC: HZ2ZZZZ Detoxification Services for Substance Abuse Treatment (ICD-10-PCS; principal; 2018-02-17)
DX: F11.23 Opioid dependence with withdrawal (principal); F14.20 Cocaine dependence, uncomplicated; F17.213 Nicotine dependence, cigarettes, with withdrawal; F41.9 Anxiety disorder, unspecified; F90.9 Attention-deficit hyperactivity disorder, unspecified type; F19.24 Other psychoactive substance dependence with psychoactive substance-induced mood disorder; G47.00 Insomnia, unspecified; M51.26 Other intervertebral disc displacement, lumbar region; M54.5 Low back pain; G89.29 Other chronic pain; R56.9 Unspecified convulsions; Z86.69 Personal history of other diseases of the nervous system and sense organs
CPT/HCPCS: 36415; 80053; 81003; 81015; 85027; 86593; 93005; 93010; J0735